=== PATIENT | male | born 1955 | race Hispanic/Latino ===

== ENCOUNTER 2022-11-30 07:32 | Day surgery (SDC) | payer OTHER ==
[2022-11-30] MEDS ORDERED: Ringers Lactate 1,000 ML IV ONE (07:49)
[2022-11-30] MEDS ORDERED: propofoL 200 MG/20 ML VIAL IV ONE (08:25)
[2022-11-30] MEDS ORDERED: LIDOCAINE 1% MPF 5 ML VIAL ONE (08:25)
[2022-11-30 10:53] VITALS: TEMP 97
[2022-11-30 10:54] VITALS: BP 116/73; O2SAT 99
== END 2022-11-30 10:29 | disposition home or self-care (01) ==
LOC: PRE 07:32 → OR 10:29
PROVIDERS: ATTEND Internal Medicine Gastroenterology
PROC: 0DJD8ZZ Inspection of Lower Intestinal Tract, Via Natural or Artificial Opening Endoscopic (ICD-10-PCS; principal; 2022-11-30 08:45)
DX: Z12.11 Encounter for screening for malignant neoplasm of colon (principal); K57.30 Diverticulosis of large intestine without perforation or abscess without bleeding; K64.8 Other hemorrhoids; I25.10 Atherosclerotic heart disease of native coronary artery without angina pectoris; I10 Essential (primary) hypertension; R06.83 Snoring; M10.9 Gout, unspecified; Z95.5 Presence of coronary angioplasty implant and graft; Z79.899 Other long term (current) drug therapy; Z88.8 Allergy status to other drugs, medicaments and biological substances
CPT/HCPCS: J2001; J2704; J7120

== ENCOUNTER 2024-12-29 11:47 | Inpatient (IN) | payer OTHER ==
--- OUTSIDE RECORDS SUMMARY | 2024-12-29 11:54 | XMS REPORT | Continuity of Care Document ---
Author Name Unknown Address [address] [facility] [address] [place] [address] [facility] [address] [facility] [address] [place] [address] Care Team Providers Care Supervisor Respiratory Name Role Phone Nicole Knott Primary Care Physician [phone] FRANC VELÁZQUEZ Attending Clinician Unavailab JOSE Boles Attending Clinician Unavailable Doctor Unassigned, [place] Attending Clinician U eidtaailjack Pob, [facility] Main Attending Clinician Jarad Malin MD, Leobardo Attending Clinician [phone] LEOBARDO MALIN Attending Clinician Shahnaz Chacon MD Attending Clinician [phone] SHAHNAZ LUA Attending Clinician UnavailJose Sanchez MD Attending Clinician [phone] Pob, [facility] Main Attending Clinician Leobardo Jean-Baptiste MD Attending Clinician [phone] Jose Neal MD Attending Clinician [phone] Doctor Unassigned, [place] Attending Clinician U kevin Champeva_P Attending Clinician Unavailable Shahnaz Lua MD Attending Clinician [phone] CHARLI HOWE Attending Clinician Unavailable JULIO CESAR ALEXANDER Attending Clinician Unavailable Julio Cesar Alexander MD Attending Clinician [phone] Birgit SILVERIO, Megan Guerrero Attending Clinician [phone] MEGAN GENAO Attending Clinician Unavail able Only, Ad[facility] Test Attending Clinician Unavailable PATRICIAMANISHASHYAM Turk Attending Clinician Unavailable Clint SILVERIO, Donny Attending Clinician [phone] Shyam Vaughn DO Attending Clinician + Madyson Meyer RN Attending Clinician Unavailab MICA Allen Attending Clinician Unavailable Marin March MD Attending Clinician [phone] Mica Jacinto MD Attending Clinician [phone] Franc Velázquez MD Attending Clinician [phone] Dickson Howard CRNA Attending Clinician [phone] Amish Leblanc MD Attending Clinician [phone] FRANC VELÁZQUEZ Admitting Clinician Unavailab zoie López_P Admitting Clinician Unavailable JULIO CESAR ALEXANDER Admitting Clinician Unavailable Julio Cesar Alexander MD Admitting Clinician [phone] MEGAN GENAO Admitting Clinician Unavail able Megan Genao MD Admitting Clinician [phone] JOSE NEAL Admitting Clinician Unavailable MICA JACINTO Admitting Clinician Unavailable Mica Jacinto MD Admitting Clinician [phone] Franc Velázquez MD Admitting Clinician [phone] Payers Payer Name Policy Type Policy Number Effective Date Expirati on Date Source MEDICARE PART A \T\ B [id number] 2018 00:00:00 [facility] (MEDICARE REPLACEMENT HMO) [id number] Problems Condition Name Condition Details Condition Category Status Onset Date Resolution Date Last Treatment Date Treating Clinician Comments Source Carcinoma of prostate Carcinoma of Prostate Problem Active 03-01 00:00: 00 [facility] Lower urinary tract symptoms due to benign prostatic hypertroph y Lower Urinary Tract Symptoms Due to Benign Prostatic Hypertroph y Problem Active 2021-09 00:00: 00 [facility] Prostate specific antigen above reference range Prostate Specific Antigen above Reference Range Problem Active 2021-09 2-22 00:00: 00 [facility] Hyperlipid emia Hyperlipid emia Problem Active 05-24 00:00: 00 [facility] Coronary atheroscle rosis Coronary Atheroscle rosis Problem Active 05-24 00:00: 00 [facility] Coronary artery disease involving [place] coronary artery of [place] heart without angina pectoris Coronary artery disease involving [place] coronary artery of [place] heart without angina pectoris Disease Active 05-24 00:00: 00 [facility] Body mass index 30+ - obesity Body Mass Index 30+ - Obesity Problem Active 01-12 00:00: 00 [facility] Essential hypertensi on Essential Hypertensi on Problem Active 01-12 00:00: 00 [facility] Echocardio gram abnormal Echocardio gram Abnormal Problem Active 01-12 00:00: 00 [facility] Chronic heart failure co-occurre nt with normal ejection fraction Chronic Heart Failure Co-occurre nt with Normal Ejection Fraction Problem Active 01-12 00:00: 00 [facility] Hypervolem ia Hypervolem ia Problem Active 10-31 00:00: 00 [facility] Allergies, Adverse Reactions, Alerts Allergy Name Allergy Type Status Severity Reaction(s) Onset Date Inactive Date Treating Clinician Comments Source Lisinopr il Propensi ty to adverse reaction s to drug Active Other - See comments 01-24 00:00: 00 cough [facility] LISINOPR IL DRUG INGREDI Active Low Other-Cmnt 01-24 00:00: 00 [facility] Lisinopr il Allergy to substanc e Active Mild Other 01-24 00:00: 00 [facility] Social History Social Habit Start Date Stop Date Quantity Comments Source History of tobacco use Current smoker [facility] Gender identity [facility] of Social function 2024-02-22 00:00:00 2024-02-22 00:00:00 [facility] Exposure to SARS-CoV-2 (event) 2022-11-11 00:00:00 2022-11-21 09:17:00 Not sure [facility] Tobacco Comment 2022-01-24 00:00:00 2022-01-24 00:00:00 not a smoker [facility] Tobacco use and exposure 2022-01-24 00:00:00 2022-01-24 00:00:00 Smokeless tobacco non-user [facility] Sex assigned at 1955 00:00:00 1955 00:00:00 [facility] Smoking Status Start Date Stop Date Source Never Smoker [place] [facility] Ex-smoker 2022-01-24 00:00:00 2022-01-24 00:00:[facility] Medications Ordered Medication Name Filled Medication Name Start Date Stop Date Current Medication? Ordering Clinician Indication Dosage Frequency Signature (SIG) Comments Components Source pantoprazol e sodium (PANTOPRAZO LE ORAL) 02-21 09:09: 48 Yes 40mg Take 40 mg by mouth in the morning. [facility] prednisoLON E 5 mg tablet 02-21 09:09: 48 Yes 5mg Take 1 tablet by mouth in the morning. [facility] abiraterone (ZYTIGA) 500 mg Tab 02-21 09:08: 25 Yes 1000mg Take 2 tablets by mouth in the morning. [facility] atorvastati n 40 mg tablet 02-21 00:00: 00 Yes [id number] 40mg Take 1 tablet by mouth in the morning. [facility] clopidogreL 75 mg tablet 02-21 00:00: 00 Yes [id number] 75mg Take 1 tablet by mouth in the morning. [facility] atorvastati n 40 mg tablet 11-26 00:00: 00 02-21 00:00 :00 No [id number] 40mg Take 1 tablet by mouth in the morning. [facility] relugolix (ORGOVYX) 120 mg Tab 05-24 09:06: 20 Yes Take by mouth. [facility] metoprolol succinate XL 25 mg 24 hr tablet - 09:00: 00 Yes 25mg Take 1 tablet by mouth in the morning. [facility] metoprolol succinate XL 25 mg 24 hr tablet 05-24 09:00: 00 Yes 25mg Take 1 tablet by mouth in the morning. [facility] clopidogreL 75 mg tablet 05-24 00:00: 00 02-21 00:00 :00 No [id number] 75mg Take 1 tablet by mouth in the morning. [facility] atorvastati n 40 mg tablet - 00:00: 00 Yes [id number] 40mg Take 1 tablet by mouth in the morning. [facility] atorvastati n 40 mg tablet 11-10 00:00: 00 05-19 00:00 :00 No [id number] 40mg Take 1 tablet by mouth in the morning. [facility] iopamidol (ISOVUE 370-500 mL) injection 2021-09 15:35: 00 07-19 15:53 :33 No ONCE INTRA PROCEDURE, Starting on Mon07/19/22 at 0935, Until Mon07/19/22 at 09, Routine, CV Intraproce dure [facility] adenosine 6 mg/1000 mL INTRACORONA RY injection for [employer] 2021-09 15:27: 14 07-19 15:53 :33 No ONCE INTRA PROCEDURE, Starting on Mon07/19/22 at 0927, Until Mon07/19/22 at 09, Routine, CV Intraproce dure [facility] adenosine diagnostic (ADENOSCAN) injection 2021-09 15:17: 00 07-19 15:53 :33 No CONTINUOUS PRN, Starting on Mon07/19/22 at 0917, Until Mon07/19/22 at 09, Routine, CV Intraproce dure [facility] nitroglycer in (TRIDIL) 2 mg in 10 mL D5W for Cardiac Cath 2021-09 14:58: 19 07-19 15:53 :33 No ONCE INTRA PROCEDURE, Starting on Mon07/19/22 at 0858, Until Mon07/19/22 at 0953, Routine, CV Intraproce dure [facility] heparin 1,000 unit/mL injection 2021-09 14:58: 00 07-19 15:53 :33 No ONCE INTRA PROCEDURE, Starting on Mon07/19/22 at 0858, Until Mon07/19/22 at 0953, Routine, CV Intraproce dure [facility] lidocaine 1% (PF) (XYLOCAINE) injection 2021-09 14:50: 00 07-19 15:53 :33 No ONCE INTRA PROCEDURE, Starting on Mon07/19/22 at 0850, Until Mon07/19/22 at 0953, Routine, CV Intraproce dure [facility] FENTanyl PF (SUBLIMAZE (PF)) injection 2021-09 14:35: 00 07-19 15:53 :33 No ONCE INTRA PROCEDURE, Starting on Mon07/19/22 at 0835, Until Mon07/19/22 at 0953, Routine, CV Intraproce dure [facility] midazolam (VERSED) injection 2021-09 14:35: 00 07-19 15:53 :33 No ONCE INTRA PROCEDURE, Starting on Mon07/19/22 at 0835, Until Mon07/19/22 at 0953, Routine, CV Intraproce dure [facility] Brilinta 90 mg tablet 90 mg by oral route. Brilinta 90 mg tablet 90 mg by oral route. 01-24 00:00: 00 No 90mg Brilinta 90 mg tablet 90 mg by oral route. [facility] ticagrelor 90 mg tablet 01-24 00:00: 00 05-24 00:00 :00 No 90mg Take 1 tablet by mouth 2 (two) times daily. Indication s: coronary artery stent placement [facility] aspirin 81 mg tablet,[place] yed release 81 mg by oral route. aspirin 81 mg tablet,[place] yed release 81 mg by oral route. 01-12 00:00: 00 No 81mg aspirin 81 mg tablet,del ayed release 81 mg by oral route. [facility] aspirin 81 mg tablet,[place] yed release 81 mg by oral route. aspirin 81 mg tablet,r[place] yed release 81 mg by oral route. 01-12 00:00: 00 No 81mg aspirin 81 mg tablet,del ayed release 81 mg by oral route. [facility] aspirin 81 mg tablet,r[place]a yed release 81 mg by oral route. aspirin 81 mg tablet,r[place]a yed release 81 mg by oral route. 01-12 00:00: 00 No 81mg aspirin 81 mg tablet,del ayed release 81 mg by oral route. [facility] aspirin 81 mg tablet,r[place]a yed release 81 mg by oral route. aspirin 81 mg tablet,r[place]a yed release 81 mg by oral route. 01-12 00:00: 00 No 81mg aspirin 81 mg tablet,del ayed release 81 mg by oral route. [facility] aspirin 81 mg EC tablet 01-12 00:00: 00 02-21 00:00 :00 No [id number] 81mg Take 1 tablet by mouth daily. [facility] furosemide 40 mg tablet 11-18 00:00: 00 02-18 00:00 :00 No [id number] 40mg Take 1 tablet by mouth daily. [facility] lisinopril 10 mg tablet TAKE 1 TABLET BY MOUTH EVERY DAY lisinopril 10 mg tablet TAKE 1 TABLET BY MOUTH EVERY DAY No lisinopril 10 mg tablet TAKE 1 TABLET BY MOUTH EVERY DAY [facility] metoclopram yoandy 10 mg tablet TAKE 3 TABLETS DIRECTED PER YOUR COLONOSCOPY PREP PACKET metoclopram yoandy 10 mg tablet TAKE 3 TABLETS DIRECTED PER YOUR COLONOSCOPY PREP PACKET No metoclopra mide 10 mg tablet TAKE 3 TABLETS DIRECTED PER YOUR COLONOSCOP Y PREP PACKET [facility] prednisone 20 mg tablet TAKE 1 TABLET BY MOUTH 1 TIME EACH DAY prednisone 20 mg tablet TAKE 1 TABLET BY MOUTH 1 TIME EACH DAY No prednisone 20 mg tablet TAKE 1 TABLET BY MOUTH 1 TIME EACH DAY [facility] Brilinta 90 mg tablet TAKE 1 TABLET BY MOUTH TWICE DAILY Brilinta 90 mg tablet TAKE 1 TABLET BY MOUTH TWICE DAILY No Brilinta 90 mg tablet TAKE 1 TABLET BY MOUTH TWICE DAILY [facility] ciclopirox 8 % topical solution ciclopirox 8 % topical solution No ciclopirox 8 % topical solution [facility] colchicine 0.6 mg tablet TAKE 1 TABLET BY MOUTH 1 TIME EACH DAY colchicine 0.6 mg tablet TAKE 1 TABLET BY MOUTH 1 TIME EACH DAY No colchicine 0.6 mg tablet TAKE 1 TABLET BY MOUTH 1 TIME EACH DAY [facility] lisinopril 10 mg tablet TAKE 1 TABLET BY MOUTH EVERY DAY lisinopril 10 mg tablet TAKE 1 TABLET BY MOUTH EVERY DAY No lisinopril 10 mg tablet TAKE 1 TABLET BY MOUTH EVERY DAY [facility] prednisone 20 mg tablet TAKE 1 TABLET BY MOUTH 1 TIME EACH DAY prednisone 20 mg tablet TAKE 1 TABLET BY MOUTH 1 TIME EACH DAY No prednisone 20 mg tablet TAKE 1 TABLET BY MOUTH 1 TIME EACH DAY [facility] allopurinol 100 mg tablet 100 mg by oral route. allopurinol 100 mg tablet 100 mg by oral route. No 100mg allopurino l 100 mg tablet 100 mg by oral route. [facility] colchicine 0.6 mg tablet TAKE 1 TABLET BY MOUTH 1 TIME EACH DAY colchicine 0.6 mg tablet TAKE 1 TABLET BY MOUTH 1 TIME EACH DAY No colchicine 0.6 mg tablet TAKE 1 TABLET BY MOUTH 1 TIME EACH DAY [facility] lisinopril 10 mg tablet TAKE 1 TABLET BY MOUTH EVERY DAY lisinopril 10 mg tablet TAKE 1 TABLET BY MOUTH EVERY DAY No lisinopril 10 mg tablet TAKE 1 TABLET BY MOUTH EVERY DAY [facility] metoclopram yoandy 10 mg tablet TAKE 3 TABLETS DIRECTED PER YOUR COLONOSCOPY PREP PACKET metoclopram yoandy 10 mg tablet TAKE 3 TABLETS DIRECTED PER YOUR COLONOSCOPY PREP PACKET No metoclopra mide 10 mg tablet TAKE 3 TABLETS DIRECTED PER YOUR COLONOSCOP Y PREP PACKET [facility] metoprolol succinate ER 25 mg tablet,exte nded release 24 hr 25 mg by oral route. metoprolol succinate ER 25 mg tablet,exte nded release 24 hr 25 mg by oral route. No 25mg metoprolol succinate ER 25 mg tablet,ext ended release 24 hr 25 mg by oral route. [facility] prednisone 20 mg tablet TAKE 1 TABLET BY MOUTH 1 TIME EACH DAY prednisone 20 mg tablet TAKE 1 TABLET BY MOUTH 1 TIME EACH DAY No prednisone 20 mg tablet TAKE 1 TABLET BY MOUTH 1 TIME EACH DAY [facility] allopurinol 100 mg tablet 100 mg by oral route. allopurinol 100 mg tablet 100 mg by oral route. No 100mg allopurino l 100 mg tablet 100 mg by oral route. [facility] Brilinta 90 mg tablet 90 mg by oral route. Brilinta 90 mg tablet 90 mg by oral route. No Brilinta 90 mg tablet 90 mg by oral route. [facility] cephalexin 500 mg capsule TAKE 1 CAPSULE BY MOUTH EVERY 8 HOURS. BEGIN 1 HOUR BEFORE PROSTATE BIOPSY cephalexin 500 mg capsule TAKE 1 CAPSULE BY MOUTH EVERY 8 HOURS. BEGIN 1 HOUR BEFORE PROSTATE BIOPSY No cephalexin 500 mg capsule TAKE 1 CAPSULE BY MOUTH EVERY 8 HOURS. BEGIN 1 HOUR BEFORE PROSTATE BIOPSY [facility] clotrimazol e-betametha sone 1 %-0.05 % topical cream APPLY TOPICALLY TO THE AFFECTED AREA TWICE DAILY clotrimazol e-betametha sone 1 %-0.05 % topical cream APPLY TOPICALLY TO THE AFFECTED AREA TWICE DAILY No clotrimazo le-betamet hasone 1 %-0.05 % topical cream APPLY TOPICALLY TO THE AFFECTED AREA TWICE DAILY [facility] colchicine 0.6 mg tablet TAKE 1 TABLET BY MOUTH 1 TIME EACH DAY colchicine 0.6 mg tablet TAKE 1 TABLET BY MOUTH 1 TIME EACH DAY No colchicine 0.6 mg tablet TAKE 1 TABLET BY MOUTH 1 TIME EACH DAY [facility] levofloxaci n 500 mg tablet TAKE 1 TABLET BY MOUTH EVERY 24 HOURS. BEGIN 1 HOUR BEFORE PROSTATE BIOPSY levofloxaci n 500 mg tablet TAKE 1 TABLET BY MOUTH EVERY 24 HOURS. BEGIN 1 HOUR BEFORE PROSTATE BIOPSY No levofloxac in 500 mg tablet TAKE 1 TABLET BY MOUTH EVERY 24 HOURS. BEGIN 1 HOUR BEFORE PROSTATE BIOPSY [facility] lisinopril 10 mg tablet TAKE 1 TABLET BY MOUTH EVERY DAY lisinopril 10 mg tablet TAKE 1 TABLET BY MOUTH EVERY DAY No lisinopril 10 mg tablet TAKE 1 TABLET BY MOUTH EVERY DAY [facility] metoclopram yoandy 10 mg tablet TAKE 3 TABLETS DIRECTED PER YOUR COLONOSCOPY PREP PACKET metoclopram yoandy 10 mg tablet TAKE 3 TABLETS DIRECTED PER YOUR COLONOSCOPY PREP PACKET No metoclopra mide 10 mg tablet TAKE 3 TABLETS DIRECTED PER YOUR COLONOSCOP Y PREP PACKET [facility] metoprolol succinate ER 25 mg tablet,exte nded release 24 hr 25 mg by oral route. metoprolol succinate ER 25 mg tablet,exte nded release 24 hr 25 mg by oral route. No 25mg metoprolol succinate ER 25 mg tablet,ext ended release 24 hr 25 mg by oral route. [facility] prednisone 20 mg tablet TAKE 1 TABLET BY MOUTH 1 TIME EACH DAY prednisone 20 mg tablet TAKE 1 TABLET BY MOUTH 1 TIME EACH DAY No prednisone 20 mg tablet TAKE 1 TABLET BY MOUTH 1 TIME EACH DAY [facility] allopurinol 100 mg tablet 100 mg by oral route. allopurinol 100 mg tablet 100 mg by oral route. No 100mg allopurino l 100 mg tablet 100 mg by oral route. [facility] Brilinta 90 mg tablet 90 mg by oral route. Brilinta 90 mg tablet 90 mg by oral route. No Brilinta 90 mg tablet 90 mg by oral route. [facility] clotrimazol e-betametha sone 1 %-0.05 % topical cream APPLY TOPICALLY TO THE AFFECTED AREA TWICE DAILY clotrimazol e-betametha sone 1 %-0.05 % topical cream APPLY TOPICALLY TO THE AFFECTED AREA TWICE DAILY No clotrimazo le-betamet hasone 1 %-0.05 % topical cream APPLY TOPICALLY TO THE AFFECTED AREA TWICE DAILY [facility] colchicine 0.6 mg tablet TAKE 1 TABLET BY MOUTH 1 TIME EACH DAY colchicine 0.6 mg tablet TAKE 1 TABLET BY MOUTH 1 TIME EACH DAY No colchicine 0.6 mg tablet TAKE 1 TABLET BY MOUTH 1 TIME EACH DAY [facility] lisinopril 10 mg tablet TAKE 1 TABLET BY MOUTH EVERY DAY lisinopril 10 mg tablet TAKE 1 TABLET BY MOUTH EVERY DAY No lisinopril 10 mg tablet TAKE 1 TABLET BY MOUTH EVERY DAY [facility] metoclopram yoandy 10 mg tablet TAKE 3 TABLETS DIRECTED PER YOUR COLONOSCOPY PREP PACKET metoclopram yoandy 10 mg tablet TAKE 3 TABLETS DIRECTED PER YOUR COLONOSCOPY PREP PACKET No metoclopra mide 10 mg tablet TAKE 3 TABLETS DIRECTED PER YOUR COLONOSCOP Y PREP PACKET [facility] metoprolol succinate ER 25 mg tablet,exte nded release 24 hr 25 mg by oral route. metoprolol succinate ER 25 mg tablet,exte nded release 24 hr 25 mg by oral route. No metoprolol succinate ER 25 mg tablet,ext ended release 24 hr 25 mg by oral route. [facility] prednisone 20 mg tablet TAKE 1 TABLET BY MOUTH 1 TIME EACH DAY prednisone 20 mg tablet TAKE 1 TABLET BY MOUTH 1 TIME EACH DAY No prednisone 20 mg tablet TAKE 1 TABLET BY MOUTH 1 TIME EACH DAY [facility] allopurinol 100 mg tablet 100 mg by oral route. allopurinol 100 mg tablet 100 mg by oral route. No 100mg allopurino l 100 mg tablet 100 mg by oral route. [facility] Brilinta 90 mg tablet 90 mg by oral route. Brilinta 90 mg tablet 90 mg by oral route. No Brilinta 90 mg tablet 90 mg by oral route. [facility] clotrimazol e-betametha sone 1 %-0.05 % topical cream APPLY TOPICALLY TO THE AFFECTED AREA TWICE DAILY clotrimazol e-betametha sone 1 %-0.05 % topical cream APPLY TOPICALLY TO THE AFFECTED AREA TWICE DAILY No clotrimazo le-betamet hasone 1 %-0.05 % topical cream APPLY TOPICALLY TO THE AFFECTED AREA TWICE DAILY [facility] colchicine (gout) 0.6 mg tablet TAKE 1 TABLET BY MOUTH 1 TIME EACH DAY colchicine (gout) 0.6 mg tablet TAKE 1 TABLET BY MOUTH 1 TIME EACH DAY No colchicine (gout) 0.6 mg tablet TAKE 1 TABLET BY MOUTH 1 TIME EACH DAY [facility] lisinopril 10 mg tablet TAKE 1 TABLET BY MOUTH EVERY DAY lisinopril 10 mg tablet TAKE 1 TABLET BY MOUTH EVERY DAY No lisinopril 10 mg tablet TAKE 1 TABLET BY MOUTH EVERY DAY [facility] metoclopram yoandy 10 mg tablet TAKE 3 TABLETS DIRECTED PER YOUR COLONOSCOPY PREP PACKET metoclopram yoandy 10 mg tablet TAKE 3 TABLETS DIRECTED PER YOUR COLONOSCOPY PREP PACKET No metoclopra mide 10 mg tablet TAKE 3 TABLETS DIRECTED PER YOUR COLONOSCOP Y PREP PACKET [facility] metoprolol succinate ER 25 mg tablet,exte nded release 24 hr 25 mg by oral route. metoprolol succinate ER 25 mg tablet,exte nded release 24 hr 25 mg by oral route. No metoprolol succinate ER 25 mg tablet,ext ended release 24 hr 25 mg by oral route. [facility] prednisone 20 mg tablet TAKE 1 TABLET BY MOUTH 1 TIME EACH DAY prednisone 20 mg tablet TAKE 1 TABLET BY MOUTH 1 TIME EACH DAY No prednisone 20 mg tablet TAKE 1 TABLET BY MOUTH 1 TIME EACH DAY [facility] allopurinol 100 mg tablet allopurinol 100 mg tablet No allopurino l 100 mg tablet [facility] aspirin 81 mg tablet Take 1 tablet every day by oral route. aspirin 81 mg tablet Take 1 tablet every day by oral route. No 1 Q1D aspirin 81 mg tablet Take 1 tablet every day by oral route. [facility] allopurinol 100 mg tablet 100 mg by oral route. allopurinol 100 mg tablet 100 mg by oral route. No 100mg allopurino l 100 mg tablet 100 mg by oral route. [facility] atorvastati n 40 mg tablet 40 mg by oral route. atorvastati n 40 mg tablet 40 mg by oral route. No atorvastat in 40 mg tablet 40 mg by oral route. [facility] Brilinta 90 mg tablet 90 mg by oral route. Brilinta 90 mg tablet 90 mg by oral route. No Brilinta 90 mg tablet 90 mg by oral route. [facility] ceftriaxone 1 gram solution for injection Take 1 g by injection route. INJECTION GIVEN PRIOR TO PROCEDURE STARTING ceftriaxone 1 gram solution for injection Take 1 g by injection route. INJECTION GIVEN PRIOR TO PROCEDURE STARTING No 1g ceftriaxon e 1 gram solution for injection Take 1 g by injection route. INJECTION GIVEN PRIOR TO PROCEDURE STARTING [facility] cephalexin 500 mg capsule TAKE 1 CAPSULE BY MOUTH EVERY 8 HOURS. BEGIN 1 HOUR BEFORE PROSTATE PROCEDURE cephalexin 500 mg capsule TAKE 1 CAPSULE BY MOUTH EVERY 8 HOURS. BEGIN 1 HOUR BEFORE PROSTATE PROCEDURE No cephalexin 500 mg capsule TAKE 1 CAPSULE BY MOUTH EVERY 8 HOURS. BEGIN 1 HOUR BEFORE PROSTATE PROCEDURE [facility] clotrimazol e-betametha sone 1 %-0.05 % topical cream APPLY TOPICALLY TO THE AFFECTED AREA TWICE DAILY clotrimazol e-betametha sone 1 %-0.05 % topical cream APPLY TOPICALLY TO THE AFFECTED AREA TWICE DAILY No clotrimazo le-betamet hasone 1 %-0.05 % topical cream APPLY TOPICALLY TO THE AFFECTED AREA TWICE DAILY [facility] atorvastati n 40 mg tablet TAKE 1 TABLET BY MOUTH DAILY atorvastati n 40 mg tablet TAKE 1 TABLET BY MOUTH DAILY No atorvastat in 40 mg tablet TAKE 1 TABLET BY MOUTH DAILY [facility] colchicine (gout) 0.6 mg tablet TAKE 1 TABLET BY MOUTH 1 TIME EACH DAY colchicine (gout) 0.6 mg tablet TAKE 1 TABLET BY MOUTH 1 TIME EACH DAY No colchicine (gout) 0.6 mg tablet TAKE 1 TABLET BY MOUTH 1 TIME EACH DAY [facility] levofloxaci n 500 mg tablet TAKE 1 TABLET BY MOUTH EVERY 24 HOURS. BEGIN 1 HOUR BEFORE PROSTATE PROCEDURE levofloxaci n 500 mg tablet TAKE 1 TABLET BY MOUTH EVERY 24 HOURS. BEGIN 1 HOUR BEFORE PROSTATE PROCEDURE No levofloxac in 500 mg tablet TAKE 1 TABLET BY MOUTH EVERY 24 HOURS. BEGIN 1 HOUR BEFORE PROSTATE PROCEDURE [facility] Vital Signs Vital Name Observation Time Observation Value Comments Neel glenara Systolic blood pressure 2024-02-22 14:05:00 134 mm[Hg] [facility] Diastolic blood pressure 2024-02-22 14:05:00 69 mm[Hg] [facility] Heart rate 2024-02-22 14:05:00 66 /min [facility] Respiratory rate 2024-02-22 14:05:00 18 /min [facility] Body height 2024-02-22 14:05:00 162.6 cm [facility] Body weight 2024-02-22 14:05:00 104.69 kg [facility] BMI 2024-02-22 14:05:00 39.62 kg/m2 [facility] Oxygen saturation in Arterial blood by Pulse oximetry 2024-02-22 14:05:00 98 /min [facility] Systolic blood pressure 2023-05-24 14:05:00 138 mm[Hg] [facility] Diastolic blood pressure 2023-05-24 14:05:00 83 mm[Hg] [facility] Heart rate 2023-05-24 14:05:00 62 /min [facility] Body temperature 2023-05-24 14:05:00 36.56 Delfina [facility] Respiratory rate 2023-05-24 14:05:00 17 /min [facility] Body height 2023-05-24 14:05:00 162.6 cm [facility] Body weight 2023-05-24 14:05:00 108.001 kg [facility] BMI 2023-05-24 14:05:00 40.87 kg/m2 [facility] Oxygen saturation in Arterial blood by Pulse oximetry 2023-05-24 14:05:00 98 /min [facility] Height 2023-05-23 00:00:00 65 [in_i] [facility] BP Diastolic 2023-03-21 00:00:00 86 mm[Hg] [facility] Height 2023-03-21 00:00:00 65 [in_i] [facility] BMI (Body Mass Index) 2023-03-21 00:00:00 38.3 kg/m2 [facility] BP Systolic 2023-03-21 00:00:00 136 mm[Hg] [facility] Body Weight 2023-03-21 00:00:00 230 [lb_av] [facility] BP Diastolic 2023-03-01 00:00:00 62 mm[Hg] [facility] Height 2023-03-01 00:00:00 65 [in_i] [facility] BMI (Body Mass Index) 2023-03-01 00:00:00 38.3 kg/m2 [facility] BP Systolic 2023-03-01 00:00:00 114 mm[Hg] [facility] Body Weight 2023-03-01 00:00:00 230 [lb_av] [facility] BP Diastolic 2023-01-09 00:00:00 76 mm[Hg] [facility] Height 2023-01-09 00:00:00 65 [in_i] [facility] BMI (Body Mass Index) 2023-01-09 00:00:00 38.3 kg/m2 [facility] BP Systolic 2023-01-09 00:00:00 124 mm[Hg] [facility] Body Weight 2023-01-09 00:00:00 230 [lb_av] [facility] Systolic blood pressure 2022-11-21 14:51:00 133 mm[Hg] [facility] Diastolic blood pressure 2022-11-21 14:51:00 79 mm[Hg] [facility] Heart rate 2022-11-21 14:51:00 61 /[facility] 2022-11-21 14:51:00 36.39 Delfina [facility] Respiratory rate 2022-11-21 14:51:00 17 /min [facility] Body height 2022-11-21 14:51:00 162.6 cm [facility] Body weight 2022-11-21 14:51:00 104.599 kg [facility] BMI 2022-11-21 14:51:00 39.58 kg/m2 [facility] Oxygen saturation in Arterial blood by Pulse oximetry 2022-11-21 14:51:00 100 /min [facility] BP Diastolic 2022-08-25 00:00:00 68 mm[Hg] [facility] land[facility] Height 2022-08-25 00:00:00 65 [in_i] [facility] [facility] BMI (Body Mass Index) 2022-08-25 00:00:00 38.3 kg/m2 [facility] BP Systolic 2022-08-25 00:00:00 128 mm[Hg] [facility] Body Weight 2022-08-25 00:00:00 230 [lb_av] [facility] land[facility] Systolic blood pressure 2022-07-19 19:50:00 121 mm[Hg] [facility] Diastolic blood pressure 2022-07-19 19:50:00 70 mm[Hg] [facility] Respiratory rate 2022-07-19 19:50:00 17 /min [facility] Oxygen saturation in Arterial blood by Pulse oximetry 2022-07-19 19:50:00 99 /min [facility] Body weight 2022-07-19 18:42:00 104.781 kg [facility] BMI 2022-07-19 18:42:00 39.65 kg/m2 [facility] Systolic blood pressure 2022-07-19 14:28:01 145 mm[Hg] [facility] Diastolic blood pressure 2022-07-19 14:28:01 86 mm[Hg] [facility] Respiratory rate 2022-07-19 14:28:01 12 /min [facility] Oxygen saturation in Arterial blood by Pulse oximetry 2022-07-19 14:28:01 100 /min [facility] Systolic blood pressure 2022-07-04 12:55:00 136 mm[Hg] [facility] Diastolic blood pressure 2022-07-04 12:55:00 80 mm[Hg] [facility] Heart rate 2022-07-04 12:55:00 64 /min [facility] Body temperature 2022-07-04 12:55:00 36.5 Delfina [facility] Body height 2022-07-04 12:55:00 162.6 cm [facility] Body weight 2022-07-04 12:55:00 105.87 kg [facility] BMI 2022-07-04 12:55:00 40.06 kg/m2 [facility] Oxygen saturation in Arterial blood by Pulse oximetry 2022-07-04 12:55:00 100 /min [facility] Systolic blood pressure 2022-05-24 15:08:00 132 mm[Hg] [facility] Diastolic blood pressure 2022-05-24 15:08:00 76 mm[Hg] [facility] Heart rate 2022-05-24 15:08:00 66 /min [facility] Body temperature 2022-05-24 15:08:00 36.56 Delfina [facility] Respiratory rate 2022-05-24 15:08:00 18 /min [facility] Body weight 2022-05-24 15:08:00 105.098 kg [facility] BMI 2022-05-24 15:08:00 39.77 kg/m2 [facility] Oxygen saturation in Arterial blood by Pulse oximetry 2022-05-24 15:08:00 100 /min [facility] Systolic blood pressure 2022-02-18 15:43:00 129 mm[Hg] [facility] Diastolic blood pressure 2022-02-18 15:43:00 72 mm[Hg] [facility] Heart rate 2022-02-18 15:43:00 75 /min [facility] Respiratory rate 2022-02-18 15:43:00 20 /min [facility] Body height 2022-02-18 15:43:00 162.6 cm [facility] Body weight 2022-02-18 15:43:00 98.884 kg [facility] BMI 2022-02-18 15:43:00 37.42 kg/m2 [facility] Oxygen saturation in Arterial blood by Pulse oximetry 2022-02-18 15:43:00 97 /min [facility] Procedures Procedure Date / Time Performed Performing Clinician Source CBC WITH DIFF 2024-07-08 18:02:00 Hector Saunders [facility] PHYSICIAN ORDERS 2023-12-19 19:00:31 Doctor Sami signed, [place] [facility] PHYSICIAN ORDERS 2023-09-20 06:01:00 Doctor Sami signed, [place] [facility] PET-CT, whole body scan 2023-03-01 00:00:00 [facility] PHYSICIAN ORDERS 2023-01-23 05:01:00 Doctor Sami signed, [place] [facility] MEDICAL RELEASE/CLEARANCE FORMS 2022-12-14 05:01:00 Doctor Unassigned, [place] [facility] Diagnostic Colonoscopy 2022-12-01 00:00:00 [facility] MEDICAL RELEASE/CLEARANCE FORMS 2022-11-29 05:01:00 Doctor Unassigned, [place] [facility] ASSIGNMENT OF BENEFITS 2022-11-21 14:38:08 Arron r Unassigned, [place] [facility] REFERRAL- REQUEST/RESPONSE 2022-07-21 06:01:00 Carlos mendez Unassigned, [place] [facility] POCT ACT LOW RANGE 2022-07-19 15:37:00 [facility] POCT ACT LOW RANGE 2022-07-19 15:37:00 [facility]esar [facility] CARDIAC CATHETERIZATION 2022-07-19 15:35:00 Jackelyn Alexander [facility] CARDIAC CATHETERIZATION 2022-07-19 15:35:00 Jackelyn Alexander [facility] CARDIAC CATHETERIZATION 2022-07-19 15:35:00 Jackelyn Alexander [facility] POCT ACT LOW RANGE 2022-07-19 15:07:00 [facility]io [facility]esar [facility] POCT ACT LOW RANGE 2022-07-19 15:07:00 Julio Cesar Alexander U [facility] PHYSICIAN ORDERS 2022-07-05 05:01:00 Doctor Sami signed, [place] [facility] PHYSICIAN ORDERS 2022-07-05 05:01:00 Doctor Sami signed, [place] [facility] Percutaneous Transluminal Balloon Angioplasty with Insertion of Stent into Coronary Artery [facility] Bilateral Extraction of Cataracts [facility] Plan of Care Planned Activity Planned Date Details Comments Source Diagnostic Test Pending 2023-03-21 00:00:00 urinalysis, dipstick [code = urinalysis, dipstick] [facility] Encounters Start Date/Time End Date/Time Encounter Type Admission Type Attending [facility] Care Facility Care Department Encounter ID Source 2021-07-02 11:39:58 Outpatient FRANC VELÁZQUEZ [facility] [id number] [facility] 2021-07-02 07:40:52 Outpatient R FRANC VELÁZQUEZ [facility] [id number] [facility] 2023-12-19 00:00:00 2024-10-19 02:19:02 Orders Only Doctor Unassigned, [place] Doctor Unassigned, [place] [facility] 1.2.840.114 350.1.13.10 4.2.7.2.686 [id number] [facility] 2024-09-30 14:30:00 2024-09-30 14:45:00 Music Therapist Visit Lm [facility] Leobardo Anderson [facility] Lab Main [facility] 1.2.840.114 350.1.13.10 4.2.7.2.686 [id number] [facility] 2024-09-30 14:30:00 2024-09-30 14:30:00 Outpatient LEOBARDO DO [facility] [id number] [facility] 2024-07-08 12:00:00 2024-07-08 12:15:00 Music Therapist Visit Juanjo, Adc Lab Main Shahnaz Luab, Adc Lab Main [facility] 1.2.840.114 350.1.13.10 4.2.7.2.686 [id number] [facility] 2024-07-08 12:00:00 2024-07-08 12:00:00 Outpatient SHAHNAZ GUTIERREZ [facility] [id number] [facility] 2024-06-14 00:00:00 2024-06-14 13:28:54 Telephone Jose Neal [facility] 1.2.840.114 350.1.13.10 4.2.7.2.686 [id number] [facility] 2024-06-07 11:45:00 2024-06-07 12:00:00 Music Therapist Visit Juanjo, Adc Lab Main Shahnaz Luab, Adc Lab Main [facility] 1.2.840.114 350.1.13.10 4.2.7.2.686 [id number] [facility] 2024-06-07 11:45:00 2024-06-07 11:45:00 Outpatient SHAHNAZ GUTIERREZ [facility] [id number] [facility] 2024-03-20 10:45:00 2024-03-20 11:00:00 Music Therapist Visit Juanjo, Adc Lab Main Leobardo Mal[facility] 1.2.840.114 350.1.13.10 4.2.7.2.686 [id number] [facility] 2024-03-20 10:45:00 2024-03-20 10:45:00 Outpatient R LEOBARDO MALIN [facility] [id number] [facility] 2024-02-26 00:00:00 2024-02-26 10:11:59 [facility] 1.2.840.114 350.1.13.10 4.2.7.2.686 [id number] [facility] 2024-02-22 09:00:00 2024-02-22 09:22:59 [facility] [id number] [facility] 2024-02-22 09:00:00 2024-02-22 09:22:59 [facility] 1.2.840.114 350.1.13.10 4.2.7.2.686 [id number] [facility] 2023-12-14 00:00:00 2023-12-14 00:00:00 Telephone Devan Nealdebby [facility] 1.2.840.114 350.1.13.10 4.2.7.2.686 [id number] [facility] 2023-11-27 15:45:00 2023-11-27 15:45:00 Outpatient R SHAHNAZ LUA [facility] [id number] [facility] 2023-09-20 14:15:00 2023-09-20 14:30:00 Music Therapist Visit Pob, Adc Lab Main [facility] 1.2.840.114 350.1.13.10 4.2.7.2.686 [id number] [facility] 2023-09-20 14:15:00 2023-09-20 14:15:00 Outpatient LEOBARDO DO [facility] [id number] [facility] 2023-09-20 00:00:00 2023-09-20 00:00:00 Orders Only Doctor Unassigned, [place] [facility] 1..840.114 350.1.13.10 4.2.7.2.686 [id number] [facility] 2023-05-24 09:00:00 2023-05-24 09:20:00 Office Visit Jose Neal [facility] 1..840.114 350.1.13.10 4.2.7.2.686 [id number] [facility] 2023-05-24 09:00:00 2023-05-24 09:00:00 Outpatient DEVAN GUERRERODEBBY [facility] [id number] [facility] 2023-05-23 00:00:00 2023-05-23 00:00:00 Outpatient Champion_P [facility] [id number] [facility] 2023-05-23 00:00:00 2023-05-23 00:00:00 Outpatient Champion_P [facility] [id number] [facility] 2023-05-23 00:00:00 2023-05-23 00:00:00 Outpatient Champion_P [facility] [id number] [facility] 2023-05-23 00:00:00 2023-05-23 00:00:00 Gaston López MD: [address] [place] [address] , Ph. [facility] [place] - 100 [id number] [facility] 2023-05-20 00:00:00 2023-05-20 00:00:00 Outpatient Champion_P HMU HMU [id number] [facility] 2023-05-17 00:00:00 2023-05-17 00:00:[address] [facility] 1.2.840.114 350.1.13.10 4.2.7.2.686 [id number] [facility] 2023-04-24 00:00:00 2023-04-24 00:00:00 Outpatient Champion_P HMU HMU [id number] [facility] 2023-03-21 00:00:00 2023-03-21 00:00:00 Gaston López MD: [id number] [facility] [address] [address] , Ph. U [facility] [place] - [place] [id number] [facility] 2023-03-17 00:00:00 2023-03-17 00:00:00 Outpatient Champion_P HMU HMU [id number] [facility] 2023-03-17 00:00:00 2023-03-17 00:00:00 Outpatient Champion_P HMU HMU [id number] [facility] 2023-03-17 00:00:00 2023-03-17 00:00:00 Outpatient Champion_P HMU HMU [id number] [facility] 2023-03-04 00:00:00 2023-03-04 00:00:00 Outpatient Champion_P HMU HM[facility] [id number] [facility] 2023-03-01 00:00:00 2023-03-01 00:00:00 Outpatient Champion_P HMU HMU [id number] [facility] 2023-03-01 00:00:00 2023-03-01 00:00:00 Gaston López MD: [address] [facility] [address], [place] [address] , Ph. [facility] [place] [facility] [id number] [facility] 2023-02-22 00:00:00 2023-02-22 00:00:00 Outpatient Champion_P HMU [facility] [id number] [facility] 2023-02-21 00:00:00 2023-02-21 00:00:00 Gaston López MD: [address] [facility], [place] [address] , Ph. [facility] [id number] [facility] 2023-01-23 11:15:00 2023-01-23 11:30:00 Music Therapist Visit Pob, Adc Lab Shahnaz Vera [facility] 1.2.840.114 350.1.13.10 4.2.7.2.686 [id number] [facility] 2023-01-23 11:15:00 2023-01-23 11:15:00 Outpatient SHAHNAZ GUTIERREZ [facility] [id number] [facility] 2023-01-23 00:00:00 2023-01-23 00:00:00 Orders Only Doctor Unassigned, [place] [facility] 1.2.840.114 350.1.13.10 4.2.7.2.686 [id number] [facility] 2023-01-11 00:00:00 2023-01-11 00:00:00 Outpatient Champion_P HMU [facility] [id number] [facility] 2023-01-11 00:00:00 2023-01-11 00:00:00 Outpatient Champion_P HMU U [id number] [facility] 2023-01-09 00:00:00 2023-01-09 00:00:00 Outpatient Champion_P HMU U [id number] [facility] 2023-01-09 00:00:00 2023-01-09 00:00:00 Outpatient Champion_P HMU U [id number] [facility] 2023-01-09 00:00:00 2023-01-09 00:00:00 Gaston López MD: [address] [address] , Ph. [facility] [place] - [place] [id number] [facility] 2022-12-15 00:00:00 2022-12-15 00:00:00 [facility] 1.2.840.114 350.1.13.10 4.2.7.2.686 [id number] [facility] 2022-12-14 00:00:00 2022-12-14 00:00:00 [facility] 1.2.840.114 350.1.13.10 4.2.7.2.686 [id number] [facility] 2022-12-14 00:00:00 2022-12-14 00:00:00 Orders Only Doctor Unassigned, [place] [facility] 1.2.840.114 350.1.13.10 4.2.7.2.686 [id number] [facility] 2022-11-29 00:00:00 2022-11-29 00:00:00 Orders Only Doctor Unassigned, [place] [facility] 1.2.840.114 350.1.13.10 4.2.7.2.686 [id number] [facility] 2022-11-25 00:00:00 2022-11-25 00:00:00 [facility] 1.2.840.114 350.1.13.10 4.2.7.2.686 [id number] [facility] 2022-11-21 09:20:00 2022-11-21 10:07:06 Outpatient R JOSE NEAL [facility] [id number] [facility] 2022-11-21 09:20:00 2022-11-21 10:07:06 [facility] 1.2.840.114 350.1.13.10 4.2.7.2.686 [id number] [facility] 2022-11-21 00:00:00 2022-11-21 00:00:00 Orders Only Doctor Unassigned, [place] [facility] 1.2.840.114 350.1.13.10 4.2.7.2.686 [id number] [facility] 2022-11-21 00:00:00 2022-11-21 00:00:00 [facility] 1.2.840.114 350.1.13.10 4.2.7.2.686 [id number] [facility] 2022-11-10 00:00:00 2022-11-10 00:00:00 [facility] 1.2.840.114 350.1.13.10 4.2.7.2.686 [id number] [facility] 2022-10-25 00:00:00 2022-10-25 00:00:00 Outpatient Champion_P HMU HMU [id number] [facility] 2022-08-30 00:00:00 2022-08-30 00:00:00 Outpatient Champion_P HMU HMU [id number] [facility] 2022-08-25 00:00:00 2022-08-25 00:00:00 Outpatient Champion_P HMU HMU [id number] [facility] 2022-08-25 00:00:2022-08-25 00:00:00 Gaston López MD: [address] [facility] [address], [place] [address] , Ph. [facility] JOSE - [id number] [facility] 2022-08-16 00:00:00 2022-08-16 00:00:00 Outpatient Champion_P U [facility] [id number] [facility] 2022-08-16 00:00:00 2022-08-16 00:00:00 Outpatient Champion_P U [facility] [id number] [facility] 2022-08-05 00:00:00 2022-08-05 00:00:00 Outpatient Champion_P U [facility] [id number] [facility] 2022-07-21 00:00:00 2022-07-21 00:00:00 Orders Only Doctor Unassigned, [place] [facility] 1..840.114 350.1.13.10 4.2.7.2.686 [id number] [facility] 2022-07-19 06:23:00 2022-07-19 14:00:00 Outpatient R JULIO CESAR [facility] [id number] [facility] 2022-07-19 06:23:00 2022-07-19 14:00:00 Hospital Encounter [facility] 1..840.114 350.1.13.10 4.2.7.2.686 [id number] [facility] 2022-07-19 07:15:00 2022-07-19 08:30:00 Surgery [facility] 1.2.840.114 350.1.13.10 4.2.7.2.686 [id number] [facility] 2022-07-15 00:00:00 2022-07-15 00:00:[address] [facility] 1.2.840.114 350.1.13.10 4.2.7.2.686 [id number] [facility] 2022-07-06 00:00:00 2022-07-06 00:00:00 Telephone Jose Neal [facility] BU[facility] 1.2.840.114 350.1.13.10 4.2.7.2.686 [id number] [facility] 2022-07-05 12:45:00 2022-07-05 13:00:00 Music Therapist Visit Pob, Adc Lab Main [facility] [place] [facility] 1.2.840.114 350.1.13.10 4.2.7.2.686 [id number] [facility] 2022-07-05 12:45:00 2022-07-05 12:45:00 Outpatient R BIRGIT MEGAN [facility] [id number] [facility] 2022-07-05 12:00:00 2022-07-05 12:15:00 Laboratory Only Only, Adc Test Megan Genao Tannermohsen Shahnaz [facility] 1.2.840.114 350.1.13.10 4.2.7.2.686 [id number] [facility] 2022-07-04 08:00:00 2022-07-04 08:30:00 Office Visit Julio Cesar Alexander [facility] 1.2.840.114 350.1.13.10 4.2.7.2.686 [id number] [facility] 2022-07-04 08:00:00 2022-07-04 08:00:00 Outpatient R JULIO CESAR ALEXANDER [facility] [id number] Mitch [facility] 2022-07-04 00:00:00 2022-07-04 00:00:00 Telephone Catherine Julio Cesar Byrnes [facility] 1.2.840.114 350.1.13.10 4.2.7.2.686 [id number] [facility] 2022-05-24 10:00:00 2022-05-24 10:20:00 [facility] 1.2.840.114 350.1.13.10 4.2.7.2.686 [id number] [facility] 2022-05-24 10:00:00 2022-05-24 10:00:00 [facility] [id number] [facility] 2022-05-24 10:00:00 2022-05-24 10:00:00 Outpatient R JM [facility] [id number] [facility] 2022-02-18 10:40:00 2022-02-18 11:05:23 [facility] [id number] [facility] 2022-02-18 10:40:00 2022-02-18 11:05:23 [facility] 1.2.840.114 350.1.13.10 4.2.7.2.686 [id number] [facility] 2022-02-14 00:00:00 2022-02-14 00:00:00 [facility] 1.2.840.114 350.1.13.10 4.2.7.2.686 [id number] [facility] 2022-01-24 07:48:00 2022-01-25 14:30:00 Outpatient R SHYAM VAUGHN [facility] [id number] [facility] 2022-01-24 07:48:00 2022-01-25 14:30:00 Hospital Encounter Megan Genao Jaramillo, Donny TeqwimuahShyam [facility] 1.2.840.114 350.1.13.10 4.2.7.2.686 [id number] [facility] 2022-01-24 09:30:00 2022-01-24 11:30:00 Surgery Megan Genao [facility] 1.2.840.114 350.1.13.10 4.2.7.2.686 [id number] [facility] 2022-01-18 00:00:00 2022-01-18 00:00:00 [facility] 1.2.840.114 350.1.13.10 4.2.7.2.686 [id number] [facility] 2022-01-12 08:40:00 2022-01-12 09:00:00 [facility] 1.2.840.114 350.1.13.10 4.2.7.2.686 [id number] [facility] 2022-01-12 08:40:00 2022-01-12 08:40:00 Outpatient R [facility] [id number] [facility] 2022-01-12 08:40:00 2022-01-12 08:40:00 Outpatient R [facility] [id number] [facility] 2022-01-11 10:00:00 2022-01-11 23:59:00 Outpatient R [facility] [id number] [facility] 2022-01-11 10:00:00 2022-01-11 23:59:00 Outpatient R [facility] [id number] [facility] 2022-01-11 10:00:00 2022-01-11 10:00:00 [facility]patient [facility] [id number] [facility] 2022-01-10 09:15:00 2022-01-10 09:30:00 Laboratory Only Only, Adc Test Lisseth [facility] 1.2.840.114 350.1.13.10 4.2.7.2.686 [id number] [facility] 2022-01-10 09:15:00 2022-01-10 09:15:00 Outpatient Aislinn RICARDOBILL [facility] [id number] [facility] 2021-12-23 00:00:00 2021-12-23 00:00:00 [facility]patient [facility] [id number] [facility] 2021-12-22 15:00:00 2021-12-22 15:00:00 [facility]patient [facility] [id number] [facility] 2021-12-22 00:00:00 2021-12-22 00:00:[address] [facility] 1.2.840.114 350.1.13.10 4.2.7.2.686 [id number] [facility] 2021-12-15 11:30:00 2021-12-15 11:45:00 Music Therapist Visit Pob, Adc [facility] 1.2.840.114 350.1.13.10 4.2.7.2.686 [id number] [facility] 2021-12-15 11:30:00 2021-12-15 11:30:00 Outpatient Aislinn LUA [facility] [id number] [facility] 2021-12-15 00:00:00 2021-12-15 00:00:00 Orders Only Doctor Unassigned, [place] [facility] 1.2.840.114 350.1.13.10 4.2.7.2.686 [id number] [facility] 2021-11-18 11:00:00 2021-11-18 11:29:41 Outpatient R JM [facility] [id number] [facility] 2021-11-18 11:00:00 2021-11-18 11:29:41 Office Visit Jm [facility] 1.2.840.114 350.1.13.10 4.2.7.2.686 [id number] [facility] 2021-11-18 11:00:00 2021-11-18 11:29:41 Outpatient R JM [facility] [id number] [facility] 2021-11-18 11:00:00 2021-11-18 11:29:41 Outpatient R JM [facility] [id number] [facility] 2021-11-18 00:00:00 2021-11-18 00:00:00 Orders Only Doctor Unassigned, [place] [facility] 1.2.840.114 350.1.13.10 4.2.7.2.686 [id number] [facility] 2021-11-04 00:00:00 2021-11-04 00:00:00 Transition of Care Madyson Meyer 1.2.840.114 350.1.13.10 4.2.7.2.686 [id number] [facility] 2021-10-31 13:58:00 2021-11-03 14:51:00 Outpatient U MICA JACINTO [facility] [id number] [facility] 2021-10-31 13:58:00 2021-11-03 14:51:00 Hospital Encounter Marin March Robin [facility] 1.2.840.114 350.1.13.10 4.2.7.2.686 [id number] [facility] 2020-04-22 14:05:00 2020-04-22 16:00:00 Hospital Encounter Franc Velázquez [facility] 1.2.840.114 350.1.13.10 4.2.7.2.686 [id number] [facility] 2020-04-22 14:35:00 2020-04-22 15:20:00 Anesthesia Dickson Howard Leonard [facility] 1.2.840.114 350.1.13.10 4.2.7.2.686 [id number] [facility] 2020-04-21 10:57:59 2020-04-21 11:14:16 Laboratory Only Only, Adc Test Franc Velázquez [place] 1.2.840.114 350.1.13.10 4.2.7.2.686 [id number] [facility] 2020-04-21 10:45:00 2020-04-21 10:45:00 Outpatient R [facility] [id number] [facility] 2020-04-21 00:00:00 2020-04-21 00:00:00 Orders Only Doctor Unassigned, [place] [facility] 1.2.840.114 350.1.13.10 4.2.7.2.686 [id number] [facility] 2020-04-01 11:25:00 2020-04-01 15:50:00 Hospital Encounter Franc Velázquez [facility] 1.2.840.114 350.1.13.10 4.2.7.2.686 [id number] [facility] 2020-04-01 00:00:00 2020-04-01 00:00:00 Orders Only Doctor Unassigned, [place] [facility] 1.2840.114 350.1.13.10 4.2.7.2.686 [id number] [facility] 2020-03-31 08:51:15 2020-03-31 09:06:15 Laboratory Only Only, [facility] Test Franc Velázquez [place] 1.2840.114 350.1.13.10 4.2.7.2.686 [id number] [facility] 2020-03-31 09:00:00 2020-03-31 09:00:00 Outpatient R FRANC VELÁZQUEZ [facility] [id number] [facility] 2020-03-23 13:00:00 2020-03-23 13:00:00 Outpatient R FRANC VELÁZQUEZ [facility] [id number] [facility] 2020-03-23 12:15:28 2020-03-23 12:30:28 Music Therapist Visit Pob, Adc Lab Main Franc Velázquez [facility] 1.2840.114 350.1.13.10 4.2.7.2.686 [id number] [facility] Results Test Description Test Time Test Comments Results Result Co mments Source [facility] [id number] 19:00:31Ordered by an unspecified provider.[facility] Hospital[facility]inal[facility] macro (dipstick) panel - [id number] 16:08:00* Test Item Value Reference Range Interpretation Comme nts leukocytes (test code = leukocytes) negative neg urobilinogen (test code = urobilinogen) 0.2 E.U./dL sm amt (.5-1mg/dL) protein (test code = protein) negative See_Comment [Automated ebridgea ge] The system which generated this result transmitted reference range: <=150 mg/d. The reference range was not used to interpret this result as normal/abnormal. pH (test code = pH) 5.5 4.5-8 blood (test code = blood) trace-lysed See_Comment A [Automated messa ge] The system which generated this result transmitted reference range: <=3 RBC. The reference range was not used to interpret this result as normal/abnormal. specific gravity (test code = specific gravity) 1.010 1.005-1.025 ketone (test code = ketone) negative none bilirubin (test code = bilirubin) negative neg glucose (test code = glucose) negative See_Comment [Automated messa ge] The system which generated this result transmitted reference range: <=130 mg/d. The reference range was not used to interpret this result as normal/abnormal. color (test code = color) yellow yellow clarity (test code = clarity) clear clear or cloudy nitrite (test code = nitrite) negative neg [facility] UrologyUrinalysis macro (dipstick) panel - [id number] 16:57:00* Test Item Value Reference Range Interpretation Comme nts leukocytes (test code = leukocytes) negative neg urobilinogen (test code = urobilinogen) 0.2 E.U./dL sm amt (.5-1mg/dL) protein (test code = protein) negative See_Comment [Automated messa ge] The system which generated this result transmitted reference range: <=150 mg/d. The reference range was not used to interpret this result as normal/abnormal. pH (test code = pH) 5.5 4.5-8 blood (test code = blood) negative See_Comment [Automated messa ge] The system which generated this result transmitted reference range: <=3 RBC. The reference range was not used to interpret this result as normal/abnormal. specific gravity (test code = specific gravity) 1.010 1.005-1.025 ketone (test code = ketone) negative none bilirubin (test code = bilirubin) negative neg glucose (test code = glucose) negative See_Comment [Automated messa ge] The system which generated this result transmitted reference range: <=130 mg/d. The reference range was not used to interpret this result as normal/abnormal. color (test code = color) yellow yellow clarity (test code = clarity) clear clear or cloudy nitrite (test code = nitrite) negative neg [facility]rologyPO[facility] ACT LOW [id number] 15:43:04* Test Item Value Reference Range Interpretation Comme nts ACTLR (test code = 8766026493) See_Comment H [Automated messa ge] The system which generated this result transmitted reference range: 89 - 169 Seconds. The reference range was not used to interpret this result as normal/abnormal. Lab Interpretation (test code = 81709-8) [facility] [id number] 15:43:04* Test Item Value Reference Range Interpretation Comme nts ACTLR (test code = 8426262947) See_Comment H [Automated messa ge] The system which generated this result transmitted reference range: 89 - 169 Seconds. The reference range was not used to interpret this result as normal/abnormal. Lab Interpretation (test code = 81766-2) Abnormal [facility] ACT LOW [id number] 15:13:44* Test Item Value Reference Range Interpretation Comme nts ACTLR (test code = 8574579412) See_Comment H [Automated messa ge] The system which generated this result transmitted reference range: 89 - 169 Seconds. The reference range was not used to interpret this result as normal/abnormal. Lab Interpretation (test code = 95912-4) [facility]normal [facility] [id number] 15:13:44* Test Item Value Reference Range Interpretation Comme nts ACTLR (test code = 9442678688) See_Comment H [Automated messa ge] The system which generated this result transmitted reference range: 89 - 169 Seconds. The reference range was not used to interpret this result as normal/abnormal. Lab Interpretation (test code = 64900-4) Abnormal [facility] Notes Date/Time Note Provider Source 2024-09-30 14:30:00 Images from the original note were not included. Venipuncture collection performed by clean technique on the left anticubitus. Total of 1 attempts were made. Slight pressure and a bandage/dressing were applied to the site(s). The patient experienced no complications. The following specimens were processed according to instructions and sent to [facility] laboratories per lab order on 08/29/24: LT BLUE SST 1 RED LAV 2 PPT DK GREEN (LiHep) DK GREEN (SodH) [place] DK BLUE (K2) DK BLUE (S) ACD Blood Culture NIPT/NTD [facility] 2024-07-08 12:00:00 Images from the original note were not included. Venipuncture collection performed by clean technique on the left anticubitus. Total of 1 attempts were made. Slight pressure and a bandage/dressing were applied to the site(s). The patient experienced no complications. The following specimens were processed according to instructions and sent to [facility] laboratories per lab order on 07/08/2024: LT BLUE SST 3 RED LAV 1 PPT DK GREEN (LiHep) DK GREEN (SodH) [place] DK BLUE (K2) DK BLUE (S) ACD Blood Culture NIPT/NTD [facility] 2024-06-14 14:38:18 Card[address] signed by Dr Neal, faxed back to [facility] and scanned into chart along with fax confirmation. Lorraine Jenkins MA [facility] 2024-06-14 13:27:18 Cardiac Clearance request received via fax from [facility] and placed in Dr Neal's folder to be reviewed. Last O/V - 02/22/2024 Last EKG - 02/22/2024 Last ECHO - 11/01/2021 Last Stress Test - 01/11/2022 Lorraine Jenkins MA [facility] 2024-06-07 11:45:00 Images from the original note were not included. Venipuncture collection performed by clean technique on the left anticubitus. Total of 1 attempts were made. Slight pressure and a bandage/dressing were applied to the site(s). The patient experienced no complications. The following specimens were processed according to instructions and sent to [facility] [employer] per lab order on 06/07/2024 : LT BLUE SST 3 RED LAV 1 PPT DK GREEN (LiHep) DK GREEN (SodH) [place] DK BLUE (K2) DK BLUE (S) ACD Blood Culture NIPT/NTD [facility] 2024-03-20 10:45:00 Images from the original note were not included. Venipuncture collection performed by clean technique on the left anticubitus. Total of 1 attempts were made. Slight pressure and a bandage/dressing were applied to the site(s). The patient experienced no complications. The following specimens were processed according to instructions and sent to [facility] laboratories per lab order on 03/20/2024: LT BLUE SST 1 RED LAV 2 PPT DK GREEN (LiHep) DK GREEN (SodH) [place] DK BLUE (K2) DK BLUE (S) ACD Blood Culture NIPT/NTD [facility] 2023-12-14 14:43:49 Copied from [facility] #[id number]. Topic: Clinical - Medical Advice >> Dec 14, 2023 2:42 PM Patient [employer] wrote: Edgar Carter is a 68 year old male. Teri joseph/ Dr. Saunders [facility] requesting provider call Dr. Saunders regarding pt care. Please advise. Dr. Saunders Marko Wade [facility] 2023-09-20 14:15:00 Images from the original note were not included. Venipuncture collection performed by clean technique on the left anticubitus. Total of 1 attempts were made. Slight pressure and a bandage/dressing were applied to the site(s). The patient experienced no complications. 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
--- NOTE | 2024-12-29 12:34 | RAD REPORT ---
EXAMINATION: ONE VIEW CHEST XR CLINICAL INDICATION: Cough;Congestion TECHNIQUE: Frontal chest projection is submitted. Examination is limited by patient positioning and t echnique. COMPARISON: No prior exam. FINDINGS: Oxss-xy-pgdbfoox bilateral pulmonary opacities likely represent pulmonary edema or pneumonia. The hea rt is mildly to moderately enlarged. No displaced fractures identified.
[2024-12-29 14:04] LABS: Absolute Lymphocytes (CBC) 0.7 K/uL (0.7-4.9); Basophils % 0.4 % (0-1.3); Eosinophils % 0.1 % (0-4.4); Hematocrit 31.7 % (39.6-49.0); Hemoglobin 11.5 g/dL (13.6-17.9); Lymphocytes % 7.6 % (15.3-44.8); MCH 32.5 pg (27.0-35.0); MCHC 36.2 g/dL (32.0-36.0); MCV 89.7 fL (80-100); MPV 7.8 fL (7.6-11.3); Monocytes % 10.1 % (3.3-12.3); Neutrophils % 81.8 % (41.7-73.7); Platelets 178 thou/uL (152-406); RBC Red Blood Cell Count 3.54 M/uL (4.33-5.43); Red Cell Distribution Width 13.3 % (12.1-15.2)
[2024-12-29 14:12] LABS: PT Prothrombin Time 15.7 SECONDS (10-13.0); PTT, Activated Partial Thromb 34.9 SECONDS (27.2-37.4); Protime INR 1.4
[2024-12-29] MEDS ORDERED: CEFTRIAXONE 1000 MG/VIAL ONE (14:12)
[2024-12-29] MEDS ORDERED: AZITHROMYCIN 500 MG INJ IVPB ONE (14:13)
[2024-12-29] MEDS ORDERED: ACETAMINOPHEN 500 MG TAB ONE (14:13)
[2024-12-29] MEDS ORDERED: NA CHLORIDE 0.9% 500 ML ONE (14:13)
[2024-12-29] MEDS ORDERED: NA CHLORIDE 0.9% 250 ML ONE (14:13)
[2024-12-29 14:22] LABS: Influenza A Ag Negative; Influenza B Ag Negative; SARS-CoV-2 Antigen Rapid Res Negative (Negative)
[2024-12-29 14:28] LABS: Anion Gap 7.7 mEq/L (5.0-15.0); Bilirubin Total 0.5 mg/dL (0.2-1.0); Magnesium 1.5 mg/dL (1.6-2.4); Potassium 2.7 mEq/L (3.5-5.1); Troponin High Sensitivity 37.4 pg/mL (<58.9)
[2024-12-29] MEDS ORDERED: POTASSIUM 25 MEQ EFFERV TAB ONE (14:45)
--- NOTE | 2024-12-29 14:45 | ER ---
Nurse's Notes [facility] Name: Edgar Vasquez Age: 69 yrs Sex: Male : 1955 Arrival Date: 12/29/2024 Time: 11:47 Bed 28 Private MD: Diagnosis: Pneumonia, unspecified organism Presentation: 12/29 12:07 Chief complaint: Patient states: dizziness, lightheaded, body aches, diarrhea, me1 generalized weakness, cough, congestion and fever since . Coronavirus screen: Vaccine status: Patient reports being unvaccinated. Ebola Screen: No symptoms or risks identified at this time. Initial Sepsis Screen: Does the patient meet any 2 criteria? No. Patient's initial sepsis screen is negative. Does the patient have a suspected source of infection? No. Patient's initial sepsis screen is negative. Risk Assessment: Do you want to hurt yourself or someone else? Patient reports no desire to harm self or others. Onset of symptoms was December 26, 2024. 12:07 Method Of Arrival: Ambulatory me1 12:07 Acuity: MAGDY 3 me1 Historical: - Allergies: 12:09 No Known Allergies; me1 - PMHx: 12:09 Hypertensive disorder; Coronary atherosclerosis; prostate cancer; me1 - PSHx: 12:09 Coronary Angioplasty; me1 - Immunization history:: Adult Immunizations up to date. - Infectious Disease History:: Denies. - Social history:: Smoking status: Patient/guardian denies using tobacco, but has a distant history of tobacco abuse. Screenin:57 [facility] ED Fall Risk Assessment (Adult) History of falling in the last 3 months, ld1 including since admission Yes- single mechanical fall (1 pt) Confusion or Disorientation No (0 pts) Intoxicated or Sedated No (0 pts) Impaired Gait Mobility Assist Device Used No (0 pt) Altered Elimination No (0 pt) Score/Fall Risk Level 0 - 2 = Low Risk Oriented to surroundings, Hourly rounding (assess needs \T\ fall precautionary measures) done. Abuse screen: Denies threats or abuse. Denies injuries from another. Nutritional screening: No deficits noted. Tuberculosis screening: No symptoms or risk factors identified. Assessment: 13:58 General: Appears in no apparent distress. comfortable, Behavior is calm, cooperative, ld1 appropriate for age. Pain: Denies pain. Neuro: Level of Consciousness is awake, alert, obeys commands, Oriented to person, place, time, situation. Cardiovascular: Capillary refill < 3 seconds Patient's skin is warm and dry. Respiratory: Airway is patent Respiratory effort is even, unlabored. GI: Abdomen is round non-distended. : No signs and/or symptoms were reported regarding the genitourinary system. EENT: No signs and/or symptoms were reported regarding the EENT system. Derm: No signs and/or symptoms reported regarding the dermatologic system. Musculoskeletal: No signs and/or symptoms reported regarding the musculoskeletal system. 14:52 Reassessment: Patient appears in no apparent distress at this time. No changes from ld1 previously documented assessment. Patient and/or family updated on plan of care and expected duration. Pain level reassessed. Vital Signs: 12:04 BP 108 / 74; Pulse 98; Resp 20; Pulse Ox 98% ; kb 12:07 Temp 103.2; Weight 104.33 kg; Height 5 ft. 5 in. ; Pain 0/10; me1 13:20 BP 103 / 51 Supine; Pulse 90; ld1 13:22 BP 97 / 53 Sitting; Pulse 88; ld1 13:24 BP 100 / 40 Standing; Pulse 88; ld1 13:57 BP 102 / 55; Pulse 84; Resp 27; Temp 99.9(O); Pulse Ox 97% on R/A; ld1 14:52 BP 101 / 50; Pulse 81; Resp 21; Pulse Ox 95% on R/A; ld1 17:01 BP 93 / 49; Pulse 72; Resp 18; Pulse Ox 96% on R/A; ld1 18:00 BP 92 / 53; Pulse 71; Resp 20; Pulse Ox 97% on R/A; ld1 18:20 BP 86 / 49; Pulse 76; Resp 20; Pulse Ox 99% on R/A; ld1 18:49 BP 97 / 55; Pulse 72; Resp 21; Pulse Ox 97% on R/A; ld1 19:00 BP 98 / 54; Pulse 73; Resp 22; Pulse Ox 100% ; me1 20:00 BP 100 / 50; Pulse 76; Resp 20; Pulse Ox 99% ; me1 21:00 BP 116 / 57; Pulse 83; Resp 19; Pulse Ox 99% ; me1 12:07 Body Mass Index 38.27 (104.33 kg, 165.1 cm) me1 12:07 Pain Scale: Adult me1 18:[address] Dow of VS ld1 ED Course: 11:57 Patient arrived in ED. cj3 11:58 Sharlene Bazan FNP-C [facility]. kb 11:58 Bryce Epstein MD is Attending Physician. kb 12:09 Triage completed. me1 12:27 Chest Single View XRAY In Process Unspecified. EDMS 12:46 Farida Robbins, RN is Primary Nurse. ld1 13:57 Blood Culture Adult (2) Sent. ld1 13:57 Lactate w/ 2H reflex if indic. Sent. ld1 13:57 COVID-19 Ag + Flu A+B Ag Sent. ld1 13:57 No provider procedures requiring assistance completed. Inserted saline lock: 20 gauge ld1 in right antecubital area, using aseptic technique. Blood collected. Flushed with 10 mL NS. 13:57 Patient has correct armband on for positive identification. Placed in gown. Bed in low ld1 position. Side rails up X2. kitchen hand on. Pulse ox on. NIBP on. Door closed. Noise minimized. Pillow given. 14:09 Blood Culture Adult (2) Sent. ld1 14:09 Lactate w/ 2H reflex if indic. Sent. ld1 14:44 Leona Hernandez MD is Hospitalizing Provider. kb 20:04 Primary Nurse role handed off by Farida Robbins, RN rv1 20:26 Jaimee Medina, RN is Primary Nurse. me1 21:49 Patient admitted, IV remains in place. me1 21:49 Provided Education on: POC. Verbalized understanding.. me1 21:49 Arm band placed on Patient placed in an exam room. me1 12/30 07:04 Primary Nurse role handed off by Jaimee Medina, BRIT bd Administered Medications: 12/29 14:21 Drug: NS 0.9% IV 500 ml 500 ml IV at 1 bolus once; to be given as a bolus over 30 ld1 minutes Volume: 500 ml; Route: IV; Rate: 1 bolus; Site: right antecubital; 15:08 Follow up: Response: No adverse reaction; IV Status: Completed infusion; IV Intake: ld1 500ml 14:21 Drug: Zithromax IVPB 500 mg IVPB once over 1 hrs; mix in 250 mL NS Route: IVPB; Infused ld1 Over: 1 hrs; Site: right antecubital; 20:27 Follow up: Response: No adverse reaction; IV Status: Completed infusion me1 14:21 Drug: Acetaminophen PO 1000 mg PO once Route: PO; ld1 15:07 Follow up: Response: No adverse reaction ld1 14:21 Drug: Rocephin IV 1 grams IV at calculated rate once; Given slow IV push per pharmacy ld1 instructions Route: IV; Rate: calculated rate; Site: right antecubital; 15:08 Follow up: Response: No adverse reaction; IV Status: Completed infusion ld1 15:00 Drug: Potassium PO Effervescent Tablet 50 mEq PO once; dissolve in 4 ounces of water or ld1 juice Route: PO; 15:07 Follow up: Response: No adverse reaction ld1 15:00 Drug: Magnesium Sulfate IVPB 1 grams IVPB once over 1 hrs Route: IVPB; Infused Over: 1 ld1 hrs; Site: right antecubital; 20:27 Follow up: Response: No adverse reaction; IV Status: Completed infusion me1 Medication: 13:57 VIS not applicable for this client. ld1 Intake: 15:08 IV: 500ml; Total: 500ml. ld1 Outcome: 14:44 Decision to Hospitalize by Provider. kb 21:49 Admitted to ER Hold. Please see [facility] for further documentation. me1 21:49 Condition: stable 21:49 Instructed on the need for admit, 12/30 12:07 Patient left the ED. cm10 Signatures: Dispatcher [employer] Sharlene Bauer, ELIF HANSEN-Angie Garrison Lauren, RN RN ld1 Nhi Finnegan rv1 Meredith Mccormick RN RN cm10 Jaimee Medina RN RN me1 Lenora Velázquez cj3
--- NOTE | 2024-12-29 14:45 | EDPHYS ---
Physician Documentation [facility] Name: Edgar Vasquez Age: 69 yrs Sex: Male : 1955 Arrival Date: 12/29/2024 Time: 11:47 Bed 28 Private MD: ED Physician Bryce Epstein HPI: 12/29 12:00 This 69 yrs old Male presents to ER via Unassigned with complaints of kb Dizziness, Lightheaded, Body Pain, Cough. 12:00 Pt is a 69 year old male who presents for fever, bodyaches, dizziness, diarrhea, cough, kb runny nose, congestion that started 4 days ago. States the dizziness was worse last night. Denies nausea, vomiting, abd pain. . Historical: - Allergies: 12:09 No Known Allergies; me1 - PMHx: 12:09 Hypertensive disorder; Coronary atherosclerosis; prostate cancer; me1 - PSHx: 12:09 Coronary Angioplasty; me1 - Immunization history:: Adult Immunizations up to date. - Infectious Disease History:: Denies. - Social history:: Smoking status: Patient/guardian denies using tobacco, but has a distant history of tobacco abuse. ROS: 12:00 Constitutional: As per HPI kb Exam: 12:00 Constitutional: This is a well developed, well nourished patient who is awake, alert, kb and in no acute distress. Head/Face: Normocephalic, atraumatic. ENT: Moist Mucous membranes Cardiovascular: Regular rate Respiratory: Respirations even and unlabored. No increased work of breathing. Talking in full sentences Abdomen/GI: Soft, non-tender. No distention Skin: Warm, dry with normal turgor. Normal color. MS/ Extremity: Pulses equal, no cyanosis. Neurovascular intact. Full, normal range of motion. Neuro: Awake and alert, GCS 15, oriented to person, place, time, and situation. 13:42 ECG was reviewed by the Attending Physician. kb Vital Signs: 12:04 BP 108 / 74; Pulse 98; Resp 20; Pulse Ox 98% ; kb 12:07 Temp 103.2; Weight 104.33 kg; Height 5 ft. 5 in. ; Pain 0/10; me1 13:20 BP 103 / 51 Supine; Pulse 90; ld1 13:22 BP 97 / 53 Sitting; Pulse 88; ld1 13:24 BP 100 / 40 Standing; Pulse 88; ld1 13:57 BP 102 / 55; Pulse 84; Resp 27; Temp 99.9(O); Pulse Ox 97% on R/A; ld1 14:52 BP 101 / 50; Pulse 81; Resp 21; Pulse Ox 95% on R/A; ld1 17:01 BP 93 / 49; Pulse 72; Resp 18; Pulse Ox 96% on R/A; ld1 18:00 BP 92 / 53; Pulse 71; Resp 20; Pulse Ox 97% on R/A; ld1 18:20 BP 86 / 49; Pulse 76; Resp 20; Pulse Ox 99% on R/A; ld1 18:49 BP 97 / 55; Pulse 72; Resp 21; Pulse Ox 97% on R/A; ld1 19:00 BP 98 / 54; Pulse 73; Resp 22; Pulse Ox 100% ; me1 20:00 BP 100 / 50; Pulse 76; Resp 20; Pulse Ox 99% ; me1 21:00 BP 116 / 57; Pulse 83; Resp 19; Pulse Ox 99% ; me1 12:07 Body Mass Index 38.27 (104.33 kg, 165.1 cm) me1 12:07 Pain Scale: Adult me1 18:[address] Dow of VS ld1 MDM: 11:58 Medical Screening Exam initiated kb 13:42 Data reviewed: vital signs, nurses notes. kb 14:54 Differential diagnosis: cardiac arrhythmia, generalized weakness, hypovolemia, kb idiopathic dizziness, pneumonia, uti. Consideration of Admission/Observation Patient was admitted/placed on observation. Escalation of care including admission/observation considered. Management of patient was discussed with the following: Hospitalist: hospitalist team, accepted for admission under Dr Hernandez. Historians other than the Patient: Spouse/Significant Other: spouse. Counseling: I had a detailed discussion with the patient and/or guardian regarding the historical points, exam findings, and any diagnostic results supporting the discharge/admit diagnosis, lab results, radiology results, the need for further work-up and treatment in the hospital. 12/29 12:05 Order name: CBC with Diff; Complete Time: 14:12 kb 12/29 12:05 Order name: CMP; Complete Time: 14:29 kb 12/29 12:05 Order name: COVID-19 Ag + Flu A+B Ag; Complete Time: 14:25 kb 12/29 12:06 Order name: Magnesium; Complete Time: 14:29 kb 12/29 12:06 Order name: Ptt, Activated; Complete Time: 14:12 kb 12/29 12:06 Order name: Troponin High Sensitivity; Complete Time: 14:29 kb 12/29 12:06 Order name: PT-INR; Complete Time: 14:12 kb 12/29 12:07 Order name: Blood Culture Adult (2) kb 12/29 12:07 Order name: Lactate w/ 2H reflex if indic.; Complete Time: 14:22 kb 12/29 16:11 Order name: Comprehensive Metabolic Panel EDHI 12/29 16:11 Order name: CBC with Automated Diff EDMS 12/29 16:11 Order name: CBC with Automated Diff; Complete Time: 08:26 EDMS 12/29 16:11 Order name: Magnesium EDHI 12/29 16:11 Order name: Magnesium; Complete Time: 08:26 EDMS 12/30 05:51 Order name: Comprehensive Metabolic Panel; Complete Time: 08: EDMS 12/30 07:17 Order name: Manual Differential; Complete Time: 08:26 EDMS 12/29 12:05 Order name: Chest Single View XRAY; Complete Time: 12:34 kb 12/29 12:06 Order name: EKG; Complete Time: 12:06 kb 12/29 16:11 Order name: Patient Safety Orders EDHI 12/29 12:05 Order name: IV Start; Complete Time: 13:57 kb 12/29 12:06 Order name: Cardiac monitoring; Complete Time: 13:57 kb 12/29 12:06 Order name: EKG - Nurse/Tech; Complete Time: 13:57 kb 12/29 12:06 Order name: Labs collected and sent; Complete Time: 13:57 kb 12/29 12:06 Order name: O2 Per Protocol; Complete Time: 13:57 kb 12/29 12:06 Order name: O2 Sat Monitoring; Complete Time: 13:57 kb 12/29 12:06 Order name: Orthostatics; Complete Time: 14:01 kb EC:42 Rate is 84 beats/min. Rhythm is regular. QRS Bruce is Normal. OH interval is normal at kb 130 msec. QRS interval is normal at 142 msec. QT interval is normal at 463 msec. Administered Medications: 14:21 Drug: NS 0.9% IV 500 ml 500 ml IV at 1 bolus once; to be given as a bolus over 30 ld1 minutes Volume: 500 ml; Route: IV; Rate: 1 bolus; Site: right antecubital; 15:08 Follow up: Response: No adverse reaction; IV Status: Completed infusion; IV Intake: ld1 500ml 14:21 Drug: Zithromax IVPB 500 mg IVPB once over 1 hrs; mix in 250 mL NS Route: IVPB; Infused ld1 Over: 1 hrs; Site: right antecubital; 20:27 Follow up: Response: No adverse reaction; IV Status: Completed infusion me1 14:21 Drug: Acetaminophen PO 1000 mg PO once Route: PO; ld1 15:07 Follow up: Response: No adverse reaction ld1 14:21 Drug: Rocephin IV 1 grams IV at calculated rate once; Given slow IV push per pharmacy ld1 instructions Route: IV; Rate: calculated rate; Site: right antecubital; 15:08 Follow up: Response: No adverse reaction; IV Status: Completed infusion ld1 15:00 Drug: Potassium PO Effervescent Tablet 50 mEq PO once; dissolve in 4 ounces of water or ld1 juice Route: PO; 15:07 Follow up: Response: No adverse reaction ld1 15:00 Drug: Magnesium Sulfate IVPB 1 grams IVPB once over 1 hrs Route: IVPB; Infused Over: 1 ld1 hrs; Site: right antecubital; 20:27 Follow up: Response: No adverse reaction; IV Status: Completed infusion me1 Disposition Summary: 12/29/24 14:44 Hospitalization Ordered Notes: Hospitalization Status: Inpatient Admission kb Provider: Leona Hernandez Condition: Stable kb Problem: new kb Symptoms: are unchanged kb Bed/Room Type: Standard kb Location: Telemetry/MedSurg (Inpatient)(12/30/24 11:05) bd Room Assignment: 415(12/30/24 11:05) bd Diagnosis - Pneumonia, unspecified organism kb Forms: - Medication Reconciliation Form kb - SBAR form kb - Leadership Thank You Letter kb Addendum: 01/05/2025 21:42 Co-signature as Attending Physician, Bryce Epstein MD I agree with the assessment and c sorenson plan of care. Signatures: Dispatcher [employer] Sharlene Bauer FNP-C TYRONE-Ckb Angie Gutierrez Corey, MD MD cha Garcia, Cindy, RN RN cg Farida Robbins, RN RN ld1 Jaimee Medina, BRIT RN me1 Corrections: (The following items were deleted from the chart) 12/29 12:06 12:06 Chest Single View+RAD.RAD.BRZ ordered. EDMS EDMS 12:07 12:07 BLOOD CULTURE*+BA.LAB.BRZ ordered. EDMS EDMS 12: 12:07 LACTATE+C.LAB.BRZ ordered. EDMS EDMS 23:57 14:44 Telemetry/MedSurg (Inpatient) kb 23:57 14:44 kb cg 12/30 11:05 12/29 23:57 [facility] ER HOLD [facility] 12/30 11:05 12/29 23:57 ERHOLD- [facility]
[2024-12-29] MEDS ORDERED: MAGNESIUM SULFATE 1 gm IVPB 1 GM/100 ML BAG IV ONE (14:46)
--- NOTE | 2024-12-29 14:50 | P.HP ---
Certification for Inpatient Patient History Date of Service: 12/29/24 Reason for admission: Community-acquired pneumonia. History of Present Illness: Patient is a 69-year-old male with past medical history of gout, coronary artery disease with stent placement x 2, 3 years ago, prostate cancer who is currently on medication abiraterone 50 mg 2 tabs daily, hypertension, hyperlipidemia, gastroesophageal reflux disease . Patient states for the past 2 to 3 days he has been having some dizziness, known syncope, subjective fever, generalized body weakness," scratchy throat", with inspiratory wheezing according to the who is present at the bedside. Patient states his weakness today progressively worsened which then prompted him to report to the ER. Patient denies any associated chest pain, or shortness of breath. On admission assessment, patient was fully awake, alert and oriented x 3, denies of any chest pain at this time, or associated shortness of breath. Patient denies of any other discomfort, patient remains afebrile at this time. Patient has inspiratory wheezing mostly located in his right lung, with no shortness of breath noted at this time. Patient respirations even and unlabored. Patient work up in the ER chest x-ray impression of mild to moderate bilateral pulmonary opacities likely represent pulmonary edema or pneumonia. The heart is mildly to moderately enlarged. No displaced fractures. Patient with no presenting signs or symptoms of pulmonary edema at this time. Patient with no peripheral edema, and lungs auscultation with no clinical presentation of pulmonary edema. Patient WBCs 9.80, with a left shift of 81.8, lactic acid is normal, potassium 2.7, magnesium 1.5., normal creatinine and BUN. Patient does not have any sign of any respiratory distress at this time. Based on patient clinical presentation, he does not meet the criteria of sepsis at this time. Patient is admitted to regular medical surgical inpatient and will be placed on azithromycin 500 mg IV daily and ceftriaxone 2 g IV daily. Patient received K-Lyte replacement in ER, and received magnesium supplement IV. Home medications list reviewed: Yes (Not on prednisone anymore, not on colchicine.) - Past Medical/Surgical History Diabetic: No -: Gout, coronary disease, hyperlipidemia, gastroesophageal flux disease, Past Surgical History: Patient denies surgical history -: Coronary stent placement x 2 2 years ago. - Social History Smoking Status: Never smoker Smoking therapy provided: No Alcohol use: No CD- Drugs: No Caffeine use: No Place of Residence: Home (Patient lives with .) <Jose Guadalupe Serna - Last Filed: 12/29/24 17:26> Date of Service: 12/29/24 <Leona Hernandez - Last Filed: 12/29/24 17:58> Allergies lisinopril Allergy (Verified 11/30/22 08:42) Cough Home Medications: Aspirin [Low Dose Aspirin EC] 81 mg PO DAILY 11/28/22 Ticagrelor [Brilinta] 90 mg PO DAILY 11/28/22 Atorvastatin Calcium [Lipitor] 40 mg PO BEDTIME 11/30/22 Colchicine 0.6 mg PO PRN PRN 11/30/22 Metoprolol Succinate 25 mg PO DAILY 11/30/22 predniSONE [Prednisone] 20 mg PO PRN PRN 11/30/22 Review of Systems 10-point ROS is otherwise unremarkable General: As per HPI Eyes: Unremarkable ENT: Unremarkable Respiratory: Wheezing Cardiovascular: Unremarkable Gastrointestinal: Unremarkable Genitourinary: Unremarkable Musculoskeletal: Unremarkable Integumentary: Unremarkable Neurological: Unremarkable Lymphatics: As per HPI <AdityajacksonJose Guadalupe - Last Filed: 12/29/24 17:26> Physical Examination - Physical Exam General: Alert, Oriented x3, Cooperative HEENT: Atraumatic, Normocephalic, PERRLA, Sclerae nonicteric Neck: Supple, 2+ carotid pulse no bruit, Without JVD or thyroid abnormality Respiratory: Inspiratory wheezes Cardiovascular: No edema, Normal S1 S2, No gallops, No rubs, No murmurs Capillary refill: <2 Seconds Gastrointestinal: Normal bowel sounds, Soft and benign, Non-distended, No ascites, No tenderness, No guarding Musculoskeletal: No clubbing, No swelling, No erythema, No tenderness Integumentary: No rashes, No breakdown, No tenderness/swelling, No erythema, No cyanosis Neurological: Normal gait, Normal speech, Normal tone, Sensation intact, Cranial nerves 3-12 intact, Normal reflexes 2+, Normal affect Lymphatics: No axilla or inguinal lymphadenopathy External genitalia: Non-tender Rectal: Normal - Studies Laboratory Data (last 24 hrs) 12/29/24 12/29/24 12/29/24 13:52 13:52 13:52 WBC 9.80 Hgb 11.5 L Hct 31.7 L Plt Count 178 PT 15.7 H INR 1.40 APTT 34.9 Sodium 136 Potassium 2.7 L BUN 14 Creatinine 1.07 Glucose 101 Magnesium 1.5 L Total Bilirubin 0.5 AST 20 ALT 18 Alkaline Phosphatase 67 <Jose Guadalupe Serna - Last Filed: 12/29/24 17:26> - Studies Laboratory Data (last 24 hrs) 12/29/24 12/29/24 12/29/24 13:52 13:52 13:52 WBC 9.80 Hgb 11.5 L Hct 31.7 L Plt Count 178 PT 15.7 H INR 1.40 APTT 34.9 Sodium 136 Potassium 2.7 L BUN 14 Creatinine 1.07 Glucose 101 Magnesium 1.5 L Total Bilirubin 0.5 AST 20 ALT 18 Alkaline Phosphatase 67 <Leona Hernandez - Last Filed: 12/29/24 17:58> Male Exam - Male Exam Scrotum: No edema, Non-tender Testicular exam: Normal size Prostate: Other (History of prostate cancer, currently on daily medication abiraterone Acetate 50 mg 2 tabs daily.) Penile exam: No lesions <DaphneJose Guadalupe - Last Filed: 12/29/24 17:26> Assessment and Plan - Plan General: Patient is a 69-year-old male who presents to the ER complaining of generalized body weakness, dizziness none syncope, subjective fever with no associated chest pain. On admission assessment, patient was fully awake, alert oriented x 3, respirations even and non-labored, right lung with inspiratory wheezing, able to communicate in full sentences, with no respiratory distress noted. Patient bilateral upper and lower extremities with no edema. Patient is afebrile at this time. Patient BUN and creatinine normal, patient has a left shift, WBC 9.80, potassium 2.7, magnesium 1.5, normal lactic acid, chest x- ray impression of pneumonia versus pulmonary edema, patient clinical presentation is more indicative of community-acquired pneumonia, and not pulmonary edema. Patient does not meet sepsis criteria at this time. Assessment and planning. (1) Community-acquired pneumonia. Refer to notation above. Patient received ceftriaxone 1 g IV and azithromycin 500 mg IV ER. -Azithromycin 500 mg IV daily. -Ceftriaxone 2 g IV daily. -DuoNeb every 6 hours. -IV NS at 100 mL/ hr x 1 L. Patient states he has had some subjective fever at home, and has not been able to take adequate amount of p.o. fluid, with the patient age and his disease process, is appropriate to hydrate at this time. Will continue to monitor for any changes in patient respiratory status or progressive change or worsening in his disease process. (2) chronic gout. -Continue current home medication allopurinol 200 mg p.o. daily. (3) chronic hypercholesterolemia. Continue home medication atorvastatin 40 mg p.o. nightly. (4) chronic GERD. -Continue home medication pantoprazole 40 mg p.o. daily. (5) chronic coronary artery disease with stent placement 3 years ago/ HTN. -Continue home medication Plavix 75 mg p.o. daily. Continue on metoprolol extended release 25 mg p.o. daily. (6) Prostate cancer. Patient states he was diagnosed with prostate cancer 3 years ago, stated he took radiation, and currently taking abiraterone acetate 50 mg 2 tablet daily. If medication is nonformulary, patient will need to continue with his current own home medication, and if formulary, the pharmacy will need to dispense.. (7) Hypokalemia. K 2.7. Patient received potassium replacement in ER. -Repeat CMP in the morning, and if potassium is not normalized will need further replacement. -Telemetry. (8) Hypomagnesemia. Magnesium 1.5. Patient received magnesium replacement 1 g in ER. -Order magnesium recheck in AM. (9) Eplained the entire treatment plan to the patient and present at bedside, solicit questions answered and voiced understanding. Discharge Plan: Home - Advance Directives Does patient have a Living Will: No Does patient have a Durable POA for Healthcare: No - Code Status/Comfort Care Code Status: Full Code <Jose Guadalupe Serna - Last Filed: 12/29/24 17:26> Physician Review: Patient Assessed, Agree with Above Assessment and Plan <Leona Hernandez - Last Filed: 12/29/24 17:58>
[2024-12-29] MEDS: NA CHLORIDE 0.9% 1,000 ML IV SCH (16:00)
[2024-12-29] MEDS ORDERED: NA CHLORIDE 0.9% 1,000 ML ONE (18:27)
[2024-12-29] MEDS: HYDROCORTISONE SUC 100 MG INJ IV ONE (19:05)
--- NOTE | 2024-12-29 19:05 | P.PN ---
Date of Service: 12/29/24 Patient is a 69-year-old gentleman who presented to the hospital with bilateral pulmonary opacities and was admitted for a pneumonia. Patient is on treatment for prostate cancer. Patient is on prednisone 5 mg daily. He does have 20 mg tablets which he states he only takes if his gout is flaring up. He is on allopurinol for his gout. Called by the nursing staff in the emergency room because blood pressure was soft. Systolic blood pressure was 80s. Patient has not taken his prednisone since yesterday morning. Will go ahead and give him stress dose steroids along with IV fluid bolus. Patient does take antihypertensives and is on metoprolol at home. Will reassess patient's blood pressure in 1 hour. At this time patient will be admitted to the general medical floor and will continue to monitor closely.
[2024-12-29] MEDS: NA CHLORIDE 0.9% 1,000 ML IV ONE (19:08)
[2024-12-29] MEDS: ATORVASTATIN 40 MG TAB PO SCH (21:00)
[2024-12-29] MEDS ORDERED: MECLIZINE HCL 12.5 MG TAB PO PRN (21:07)
[2024-12-29 21:13] VITALS: BMI 38.1
[2024-12-29] MEDS ORDERED: NA CHLORIDE 0.9% 2,000 ML ONE (21:14)
[2024-12-29] MEDS ORDERED: HYDROCORTISONE SUC 100 MG INJ ONE (21:14)
[2024-12-29] MEDS ORDERED: ATORVASTATIN 40 MG TAB ONE (21:46)
[2024-12-30 05:38] LABS: Absolute Lymphocytes (CBC) 0.4 K/uL (0.7-4.9); Absolute Monocytes 0.2 K/uL (0.1-1.3); Absolute Neutrophil 7.5 K/uL (1.8-8.0); Basophils % 0.3 % (0-1.3); Hematocrit 29.9 % (39.6-49.0); Hemoglobin 10.8 g/dL (13.6-17.9); Lymphocytes % 4.9 % (15.3-44.8); MCH 32.4 pg (27.0-35.0); MCHC 36.1 g/dL (32.0-36.0); MCV 89.9 fL (80-100); MPV 7.8 fL (7.6-11.3); Monocytes % 2.8 % (3.3-12.3); Platelets 154 thou/uL (152-406); RBC Red Blood Cell Count 3.33 M/uL (4.33-5.43); Red Cell Distribution Width 13.3 % (12.1-15.2)
[2024-12-30 05:50] LABS: Albumin 2.7 g/dL (3.4-5.0); Albumin/Globulin Ratio 0.9 (1.1-1.8); Bilirubin Total 0.4 mg/dL (0.2-1.0); Protein, Total 5.7 g/dL (6.4-8.2)
[2024-12-30] MEDS ORDERED: METOPROLOL XL 25 MG TAB PO SCH (06:00)
[2024-12-30] MEDS: IPRATROPIUM BROM 0.5MG/2.5ML NEB SCH (07:00)
[2024-12-30] MEDS: ALBUTEROL 2.5 MG/3 ML NEB SOL NEB SCH (07:00)
[2024-12-30 07:16] LABS: Band Neutrophils 5 % (0-1); Blood Morphology Comment NOT SEEN (NOT SEEN); Differential Total Cells Count 100; Lymphocytes 3 % (15-42); Monocytes 0 % (0-10); Platelet Estimate ADEQ; Segmented Neutrophils 92 % (40-80)
[2024-12-30] MEDS ORDERED: AZITHROMYCIN 500 MG INJ IVPB ONE (07:27)
[2024-12-30] MEDS ORDERED: CEFTRIAXONE 2000 MG/VIAL ONE (07:27)
[2024-12-30] MEDS ORDERED: CLOPIDOGREL 75 MG TABLET ONE (07:27)
[2024-12-30] MEDS ORDERED: NA CHLORIDE 0.9% 250 ML ONE (07:28)
[2024-12-30] MEDS ORDERED: ENOXAPARIN 40 MG/0.4 ML SQ ONE (07:28)
[2024-12-30] MEDS: CEFTRIAXONE 2,000 MG in NA CHLORIDE 0.9% 100 ML IV SCH (07:36)
[2024-12-30] MEDS: AZITHROMYCIN IV 500 MG in NA CHLORIDE 0.9% 250 ML IVPB SCH (07:36)
[2024-12-30] MEDS: allopurinoL 100 MG TAB PO SCH (07:36)
[2024-12-30] MEDS: CLOPIDOGREL 75 MG TABLET PO SCH (07:36)
[2024-12-30] MEDS: ENOXAPARIN 40 MG/0.4 ML SQ SCH (07:36)
--- NOTE | 2024-12-30 11:49 | P.PN ---
Date of Service: 12/30/24 Subjective: breathing feels slightly easier today blood pressure was noted to be low yesterday afternoon, 80s systolic afebrile, BP improved to 110s today no new / worsening problems Physical Exam: GEN: Alert, oriented, NAD CV: Regular rate and rhythm, no edema Pulm: Nonlabored respirations on room air, clear bilaterally ABD: soft, nontender, nondistended Integumentary: No rashes Neuro: Normal speech, normal affect Problem List: Generalized Weakness, Dizziness Bilateral Pulmonary Opacities Hypotension Hypokalemia Hyperlipidemia GERD Hx CAD s/p PCI x2 (~3 yrs ago) Hx gout Hx Prostate cancer Hx Hypertension Generalized Weakness, Dizziness Bilateral Pulmonary Opacities on admission, presents with weakness, dizziness, lightheadedness, body aches, diarrhea cough, congestion, fever for 1-2 days. Denies chest pain/SOB CXR noted [id number] bilateral pulmonary opacities. Pulm edema vs Pneumonia. Mild-mod cardiomegaly. Given IV rocephin, Azithromycin in ED, IVF in ED. Continue IV rocephin / azithromycin (12/30-) Follow blood cultures Dr. Jones, pulm consulted Wean oxygen as tolerated Hypotension Hx Prostate cancer blood pressure was noted to be low yesterday, down to 80s systolic. On Abiraterone/prednisone for prostate cancer. States he hadn't taken his home prednisone since 12/28. improved to 110s after stress-dose steroids and IVF Monitor closely Hypokalemia 2.7 on admission. Potassium replaced in ED. there was mention of diarrhea per ER notes Monitor and replete as needed. Hyperlipidemia GERD Hx CAD s/p PCI x2 (~3 yrs ago) Hx gout Hx Hypertension confirm home meds, restart as appropriate resume home statin, allopurinol, plavix, meclizine VTE: Lovenox Code: Full Dispo: Home, possibly tomorrow pending breathing improves, BP stable Time Spent Managing Pts Care (In Minutes): 55
--- NOTE | 2024-12-30 12:09 | EKG ---
Test Date: 2024-12-29 Test Time: 13:40:18 Flotation Tender Helper: Chris SI MEASUREMENT RESULTS: Intervals: Rate: 84 [place]: 130 QRSD: 142 QT: 392 QTc: 463 [place]: P: 33 [place]: 130 QRS: -55 T: 30 INTERPRETIVE STATEMENTS: Sinus rhythm with occasional premature ventricular complexes Left axis deviation Right bundle branch block Minimal voltage criteria for LVH, may be normal variant Inferior infarct, age undetermined Abnormal ECG No previous ECG available for comparison Electronically Signed On 12-30-24 12:07:23 CDT by Gibson Smith
[2024-12-31 06:54] VITALS: O2SAT 96
[2024-12-31] MEDS: ACETAMINOPHEN 325 MG TABLET PO PRN (08:08)
[2024-12-31 08:09] LABS: Albumin 2.7 g/dL (3.4-5.0); Albumin/Globulin Ratio 0.9 (1.1-1.8); Anion Gap 7.8 mEq/L (5.0-15.0); Bilirubin Total 0.5 mg/dL (0.2-1.0); Magnesium 1.9 mg/dL (1.6-2.4); Potassium 2.8 mEq/L (3.5-5.1); Protein, Total 5.7 g/dL (6.4-8.2)
[2024-12-31 12:11] VITALS: BP 128/69; TEMP 98.1
--- NOTE | 2024-12-31 12:33 | P.CNS ---
Date of Consult: 12/31/24 Reason for Consult: Pneumonia Chief Complaint: Community-acquired pneumonia. History of Present Illness: Patient is 69 years of age no prior history of cardiopulmonary problems admitted with acute onset of cough fever since preceded by an itchy throat became worse ended up here in the hospital is currently doing better although as he has a slight fever history of coronary artery disease feeling better Allergies lisinopril Allergy (Verified 11/30/22 08:42) Cough Home Medications: Atorvastatin Calcium [Lipitor] 40 mg PO BEDTIME 11/30/22 Metoprolol Succinate 25 mg PO DAILY 11/30/22 predniSONE [Prednisone] 20 mg PO PRN PRN 11/30/22 Abiraterone Acetate 1,000 mg PO DAILY 12/30/24 Allopurinol 200 mg PO DAILY 12/30/24 Clopidogrel Bisulfate [Plavix] 75 mg PO DAILY 12/30/24 Pantoprazole Sodium [Protonix] 40 mg PO DAILY 12/30/24 Relugolix [Orgovyx] 120 mg PO DAILY 12/30/24 predniSONE [Prednisone] 5 mg PO DAILY 12/30/24 - Past Medical/Surgical History Diabetic: No -: Gout, coronary disease, hyperlipidemia, gastroesophageal flux disease, -: Coronary stent placement x 2 2 years ago. - Social History Alcohol use: No CD- Drugs: No Caffeine use: Yes Place of Residence: Home Review of Systems 10-point ROS is otherwise unremarkable Physical Examination Temp Pulse Resp BP Pulse Ox 98.1 F 70 16 128/69 96 12/31/24 12:00 12/31/24 12:00 12/31/24 12:00 12/31/24 12:00 12/31/24 12:00 General: Alert, Oriented x3 HEENT: Atraumatic Neck: Supple Respiratory: Clear to auscultation bilaterally Cardiovascular: No edema, Regular rate/rhythm, Normal S1 S2 Gastrointestinal: Normal bowel sounds, Soft and benign - Problems (1) Pneumonia Current Visit: Yes Status: Acute Plan: Patient is 69 years of age previously no history of any pulmonary disorders never smoker admitted with acute signs of fever cough productive sputum possible pneumonia chest x-ray possible bilateral infiltrates patient is stable for discharge discharge home on Augmentin and Zithromax follow-up with me in 2 weeks vital signs are so far satisfactory Qualifiers: Aspiration pneumonia type: unspecified Laterality: unspecified laterality
--- NOTE | 2024-12-31 13:27 | P.DS ---
Admission Date: 12/29/24 Discharge Date: 12/31/24 Disposition: ROUTINE DISCHARGE Discharge Condition: FAIR Reason for Admission: Community-acquired pneumonia. Brief History of Present Illness: 69-year-old male with past medical history of gout, coronary artery disease with stent placement x 2, 3 years ago, prostate cancer on medication abiraterone 50 mg 2 tabs daily, hypertension, hyperlipidemia, gastroesophageal reflux disease presented with subjective fever, dizziness, generalized body weakness," scratchy throat", cough and wheezing. Patient evaluated in the ED and chest x-ray demonstrated bilateral opacities suggestive of infiltrate versus vascular congestion. Patient was hospitalized for further management. Hospital Course: Problem List: Generalized Weakness, Dizziness Bilateral Pulmonary Opacities Hypotension Hypokalemia Hyperlipidemia GERD Hx CAD s/p PCI x2 (~3 yrs ago) Hx gout Hx Prostate cancer Hx Hypertension Patient admitted to the medical floor and treated with IV Zithromax and oral Augmentin. Patient was evaluated by pulmonary Dr. Jones will help manage his respiratory condition. Patient has responded well to treatment, symptoms significantly improved, he is ambulatory, vital stable. He did experience low-grade fever. No sepsis. Patient symptoms suggest viral respiratory infection. Patient is discharged with oral Augmentin and oral doxycycline. He is informed to follow-up with pulmonary Dr. Jones within 2 weeks. Vital Signs/Physical Exam: Temp Pulse Resp BP Pulse Ox 98.1 F 70 16 128/69 96 12/31/24 12:00 12/31/24 12:00 12/31/24 12:00 12/31/24 12:00 12/31/24 12:00 General: Alert, In no apparent distress, Oriented x3, Obese HEENT: EOMI, Sclerae nonicteric Neck: Supple, JVD not distended Respiratory: Clear to auscultation bilaterally, Normal air movement Gastrointestinal: Normal bowel sounds, Soft and benign, Non-distended, No tenderness Musculoskeletal: No swelling Integumentary: No rashes, No cyanosis Neurological: Normal speech, Normal strength at 5/5 x4 extr, Cranial nerves 3-12 intact Laboratory Data at Discharge: WBC 8.10 thou/uL (4.3-10.9) 12/30/24 05:22 Hgb 10.8 g/dL (13.6-17.9) L 12/30/24 05:22 Hct 29.9 % (39.6-49.0) L 12/30/24 05:22 Plt Count 154 thou/uL (152-406) 12/30/24 05:22 PT 15.7 SECONDS (10-13.0) H 12/29/24 13:52 INR 1.40 12/29/24 13:52 APTT 34.9 SECONDS (27.2-37.4) 12/29/24 13:52 Sodium 140 mEq/L (136-145) 12/31/24 07:01 Potassium 2.8 mEq/L (3.5-5.1) L 12/31/24 07:01 BUN 6 mg/dL (7-18) L 12/31/24 07:01 Creatinine 0.76 mg/dL (0.70-1.30) 12/31/24 07:01 Glucose 118 mg/dL (74-106) H 12/31/24 07:01 Magnesium 1.9 mg/dL (1.6-2.4) 12/31/24 07:01 Total Bilirubin 0.5 mg/dL (0.2-1.0) 12/31/24 07:01 AST 39 U/L (15-37) H 12/31/24 07:01 ALT 28 U/L (16-61) 12/31/24 07:01 Alkaline Phosphatase 61 U/L (45-117) 12/31/24 07:01 Home Medications: Atorvastatin Calcium [Lipitor] 40 mg PO BEDTIME 11/30/22 Metoprolol Succinate 25 mg PO DAILY 11/30/22 predniSONE [Prednisone] 20 mg PO PRN PRN 11/30/22 Abiraterone Acetate 1,000 mg PO DAILY 12/30/24 Allopurinol 200 mg PO DAILY 12/30/24 Clopidogrel Bisulfate [Plavix] 75 mg PO DAILY 12/30/24 Pantoprazole Sodium [Protonix] 40 mg PO DAILY 12/30/24 Relugolix [Orgovyx] 120 mg PO DAILY 12/30/24 predniSONE [Prednisone] 5 mg PO DAILY 12/30/24 Amox/Clavulanate [Augmentin 875-125 Tab*] 875 mg PO BID #14 tab 12/31/24 Doxycycline Hyclate 100 mg PO BID #14 cap 12/31/24 New Medications: Amox/Clavulanate [Augmentin 875-125 Tab*] 875 mg PO BID #14 tab Doxycycline Hyclate 100 mg PO BID #14 cap Physician Discharge Instructions: Patient presented with dizziness, cough and wheezing, scratchy throat, subjective fever, generalized body weakness of 2 days duration. Patient evaluated in the ED, chest x-ray showed bilateral opacities suggestive of pneumonia versus vascular congestion. Patient admitted to the medical floor and treated with IV Zithromax and oral Augmentin. Patient was evaluated by pulmonary Dr. Jones will help manage his respiratory condition. Patient has responded well to treatment, symptoms significantly improved, he is ambulatory, vital stable. He did experience low-grade fever. No sepsis. Patient symptoms suggest viral respiratory infection. Patient is discharged with oral Augmentin and oral doxycycline. He is informed to follow-up with pulmonary Dr. Jones within 2 weeks. New medications Oral doxycycline Oral Augmentin. Diet: AHA Activity: Ad pradeep Followup: NIDA WILDER [Primary Care Provider] - 1-2 Weeks Time spent managing pt's care (in minutes): 33
[2024-12-31] MEDS ORDERED: AMOX/K CLAV 875 MG TAB PO SCH (21:00)
== END 2024-12-31 15:17 | disposition home or self-care (01) | DRG 195 ==
LOC: ER 11:47 → ERHOLD 19:05 → 4TH 12-30 11:34
PROVIDERS: ADMIT Hospitalist; ATTEND Internal Medicine
DX: J18.9 Pneumonia, unspecified organism (principal); I10 Essential (primary) hypertension; E87.6 Hypokalemia; E83.42 Hypomagnesemia; E78.5 Hyperlipidemia, unspecified; C61 Malignant neoplasm of prostate; E78.00 Pure hypercholesterolemia, unspecified; E66.9 Obesity, unspecified; I95.9 Hypotension, unspecified; K21.9 Gastro-esophageal reflux disease without esophagitis; M1A.9XX0 Chronic gout, unspecified, without tophus (tophi); I25.10 Atherosclerotic heart disease of native coronary artery without angina pectoris; Z95.5 Presence of coronary angioplasty implant and graft; Z88.8 Allergy status to other drugs, medicaments and biological substances; Z79.82 Long term (current) use of aspirin; Z79.52 Long term (current) use of systemic steroids; Z85.46 Personal history of malignant neoplasm of prostate; Z68.38 Body mass index [BMI] 38.0-38.9, adult; Z11.52 Encounter for screening for COVID-19; Z79.899 Other long term (current) drug therapy; Z87.891 Personal history of nicotine dependence
CPT/HCPCS: 36415; 71045; 80053; 83605; 83735; 84484; 85025; 85610; 85730; 87040; 87428; 93005; 94640; 96365; 96366; 96367; 96368; 99285; J0696; J1650; J1720; J3475; J7030; J7040; J7050; J7613; J7644